=== PATIENT | male | born 1995 | race Caucasian/White ===

== ENCOUNTER 2018-09-19 13:07 | Outpatient (CLI) | payer OTHER, SELFPAY ==
[2018-09-19 13:42] LABS: HCT 44.5 % (40.0-50.0); HGB 14.8 g/dL (13.5-17.5); Mean Corp. HGB Concentration 33.3 g/dL (32.0-36.0); Mean Corpuscular Hemoglobin 27.7 pg (27.0-33.0); Mean Corpuscular Volume 83.2 fL (80-95); Mean Platelet Volume 9.8 fL (8.0-11.0); Platelet Count 291 x1000/uL (130-400); RBC 5.35 m/cumm (4.50-6.00); RBC Distribution Width 12.7 % (11.8-14.1); White Blood Cell Count 9.16 k/cumm (4.4-10.8)
[2018-09-19 14:19] LABS: ALT 39 U/L (12-78); AST 19 U/L (15-37); Albumin 3.7 g/dL (3.4-5.0); Alkaline Phosphatase 89 U/L (46-116); Anion Gap 9.6 mmol/L (3-11); BUN 12 mg/dL (7-18); Bilirubin, Total 0.4 mg/dL (0.2-1.0); CO2 29.4 mmol/L (21.0-32.0); CREATININE 0.98 mg/dL (0.70-1.30); Calcium 8.9 mg/dL (8.5-10.1); Chloride 105 mmol/L (98-107); Glucose 87 mg/dL (70-100); Lipase 673 U/L (73-393); Sodium 144 mmol/L (136-145); Total Protein 7.5 g/dL (6.4-8.2)
== END 2018-09-19 13:27 ==
PROVIDERS: PCP Nurse Practitioner Family; Visit Provider Nurse Practitioner Family
DX: R11.2 Nausea with vomiting, unspecified (principal)
CPT/HCPCS: 36415; 80053; 83690; 85027

== ENCOUNTER 2018-09-20 07:30 | Outpatient (REF) | payer OTHER, SELFPAY ==
[2018-09-22 13:12] LABS: Helicobacter pylori Ag, Feces Negative (NEGAT)
== END 2018-09-20 07:50 ==
LOC: LBN 07:30
PROVIDERS: PCP Nurse Practitioner Family; Visit Provider Nurse Practitioner Family
DX: R11.2 Nausea with vomiting, unspecified (principal)
CPT/HCPCS: 87338

== ENCOUNTER 2018-11-04 06:09 | Day surgery (SDC) | payer OTHER, SELFPAY ==
[2018-11-04 06:20] VITALS: BP 141/78; PULSE 96; RESP 16; TEMP 36.5; O2SAT 99
[2018-11-04] MEDS: Lactated Ringers 1,000 ML 80 ML IV (07:03)
--- NOTE | 2018-11-04 07:50 | STOM_PTH ---
PATIENT: Stan Ferguson LOC: [facility] U#:[id number] AGE/SX: 23/M ROOM: RE11/04/[address]: Winnie Rinaldi : 1995 BED: DIS: 11/04/2018 SPEC #: [id number] RECD: 11/04/18 12:55 STATUS: MAYI PETERSON #: [id number] NATALYA: 11/04/18 07:[address]: Winnie Rinaldi DEPT: Surgical Specimen RECD BY: Vanessa Carbajal ENTERED: 11/04/18 12:57 SP TYPE: STOMACH OTHR DR: Massiel Roger APRN Tissues: 1 - STOMACH BIOPSY 2 - STOMACH BIOPSY 3 - STOMACH BIOPSY 4 - ESOPHAGUS BIOPSY 5 - ESOPHAGUS BIOPSY Procedures: GROSS AND MICRO LEVEL 4 IMMUNOPEROXIDASE STAIN Comments: [id number]
--- NOTE | 2018-11-04 08:03 | PDOC.DSDIS_ITS ---
Discharge Plan Disposition Patient Disposition: HOME Condition: Good Discharge Details Reason For Visit: EGD Attending Provider: Winnie Rinaldi Primary Care Provider: Massiel Roger Home Meds and New Rx's Prescriptions: New pantoprazole 40 mg tablet,delayed release (DR/EC) 40 mg PO DAILY Qty: 30 RF: 11 Continued sildenafil [Viagra] 100 mg tablet 100 mg PO PRN Qty: 8 RF: 12 acetaminophen [Tylenol] 325 MG tablet 650 mg PO DIRECTED PRNRF: 0 Discontinued omeprazole 20 mg capsule,delayed release(DR/EC) 20 mg PO DAILY Qty: 90 RF: 0 ibuprofen [Advil Liqui-Gel] 200 MG capsule 800 mg PO DIRECTED PRNRF: 0 Discharge Instructions Additional Instructions: -avoid caffeine and carbonated beverages avoid mint/chocolate/citrus/tomatoes/onions/garlic -do not lie down for 30 mins after eating -do not eat 2 hrs before bedtime Referrals: Winnie Rinaldi, [OSTEOPATHIC DOCTOR] - (fu in 1 wks time ) Activity:: Activity as Tolerated Shower/Bathe:: 24 hours Diet:: Other Discharge Orders Discharge Orders: Discharge Order (Routine); Ordered 11/04/18 Ordered By: Winnie Rinaldi Other Ambulatory Orders: US abdomen limited (Routine) Timeframe: 1 Week Facility: [facility] - Location: DIAGNOSTIC IMAGING Ordered By: Winnie Rinaldi DS: Diagnosis Discharge Diagnosis (1) Nausea and vomiting: Status: Acute
[2018-11-04 08:22] VITALS: BP 125/75; PULSE 82; RESP 16; TEMP 37.1; O2SAT 96
--- NOTE | 2018-11-04 08:23 | W.PM.ENDDOP ---
Date of service: 11/04/18 Time of Service: 08:23 Endoscopy Report DATE OF PROCEDURE: 11/04/18 PRE-OP DIAGNOSIS: nausea and vomiting POST-OP DIAGNOSIS: same PROCEDURE: egd and bx SURGEON: Winnie Rinaldi ANESTHESIA: MAC ESTIMATED BLOOD LOSS: 2 PATHOLOGY: other COMPLICATIONS: None DISPOSITION: PACU INDICATIONS: nausea and vomiting PREP: Other (none ) FINDINGS: normal Op report is dictated
--- NOTE | 2018-11-07 11:01 | ROE_ITS ---
DATE OF PROCEDURE: November 04, 2018 PREOPERATIVE DIAGNOSIS: Protracted nausea and vomiting. POSTOPERATIVE DIAGNOSIS: Same. PROCEDURE: Esophagogastroduodenoscopy with biopsies. SURGEON: Winnie Rinaldi D.O. ANESTHESIA: MAC ESTIMABED BLOOD LOSS: Less than 2 cc's SPECIMENS: Biopsies are taken. CONDITION: Patient tolerated the procedure well without complications and transferred to the recovery room in stable condition. INDICATION FOR PROCEDURE: Mr. Ferguson is a 23-year-old male seen at the request of his PCP, Dr. Massiel Roger, regarding nausea and vomiting. He has failed outpatient conservative medical management and is here today for an EGD. Informed consent was obtained. Explained risks and benefits of the procedure, including but not limited to infection, perforation, aspiration, and complications from the anesthesia. PROCEDURE DESCRIPTION: The patient was brought to the operative suite and placed in the supine position. Anesthesia is administered per the Department of Anesthesia. A time-out is performed. The previously-lubricated Olympus scope was easily inserted into the oropharynx and passed down into the esophagus. There were no esophageal erosions, varices, diverticula or stricture apparent. The scope is passed into the fundus and the body and the fundus appears grossly normal and there are no signs of ulcers, gastritis, masses, etc. The scope is passed to the antrum. The pylorus and duodenum bulb are visualized. The scope is passed into the second portion of the duodenum, past the papillae and free flow of bile is noted. There are no signs of any abnormality in the duodenum. Biopsy is taken of the duodenal bulb, the antrum, the greater curvature, the GE junction and the distal esophagus. All specimens are retrieved. There is no bleeding noted. Again, grossly this appears to be a normal exam. The patient tolerated the procedure well without complication, and transferred to the recovery room in stable condition. He was given postoperative instructions. He will have an ultrasound next week to follow-up for completion. He will follow-up in one weeks' time in the office for results of biopsies. He is given a prescription for Protonix b.i.d. and instructions reflux lifestyle modifications. He was sent home with a shuttle truck driver and responsible adult for the next eight hours of care post anesthesia. Thank you for allowing me to participate in the care of this patient. cc: Massiel Roger N.P.
== END 2018-11-04 08:49 | disposition home or self-care (01) ==
PROVIDERS: PCP Nurse Practitioner Family; Visit Provider Surgery
PROC: 0DJ68ZZ Inspection of Stomach, Via Natural or Artificial Opening Endoscopic (ICD-10-PCS; CPT 43235; principal; 2018-11-04 07:30)
DX: R11.2 Nausea with vomiting, unspecified (principal); K31.89 Other diseases of stomach and duodenum; K29.50 Unspecified chronic gastritis without bleeding; K21.0 Gastro-esophageal reflux disease with esophagitis
CPT/HCPCS: 43239; 88305; 88361

== ENCOUNTER 2018-11-08 06:54 | Outpatient (CLI) | payer OTHER, SELFPAY ==
--- NOTE | 2018-11-08 07:04 | DI.US_ITS ---
SYMPTOM/DIAGNOSIS: ABD PAIN, NAUSEA, VOMITING, FAMILY H/O GB DISEASE ABDOMEN ULTRASOUND: Routine examination. There are no priors for comparison. The abdominal aorta and IVC are unremarkable. The liver is enlarged measuring 19 cm. in length. There is diffuse increased echogenicity of the liver. No hepatic mass is seen. The gallbladder, common duct, spleen and kidneys are unremarkable. The pancreatic head was visualized and is unremarkable. The remainder of the pancreas cannot be seen due to overlying bowel. IMPRESSION: Increased echogenicity of the liver suggestive of hepatic steatosis.
== END 2018-11-08 07:14 ==
PROVIDERS: PCP Nurse Practitioner Family; Visit Provider Surgery
DX: R10.9 Unspecified abdominal pain (principal); R11.2 Nausea with vomiting, unspecified; R16.0 Hepatomegaly, not elsewhere classified; Z83.79 Family history of other diseases of the digestive system
CPT/HCPCS: 76700

== ENCOUNTER 2018-12-08 00:28 | Outpatient (CLI) | payer OTHER, SELFPAY ==
[2018-12-08] MEDS: Breeza Beverage 473 ML BTL PO ×2 (08:15→08:16)
[2018-12-08] MEDS: Omnipaque 350 MG/ML 50 ML BTL PO (08:15)
--- NOTE | 2018-12-08 09:08 | DI.CT_ITS ---
SYMPTOM/DIAGNOSIS: UNCONTROLLED VOMITING, NAUSEA, R11.2 CHEST, ABDOMEN AND PELVIC CT: The study was carried out with an intravenous injection of 100 cc's of Omnipaque 350 and oral ingestion of dilute contrast material. CHEST: A small calcified nodule is noted in the right upper lobe. The lungs are otherwise unremarkable. There is no infiltrate. There is no pleural effusion. There is a normal sized heart. There is no pericardial effusion. No hilar or mediastinal adenopathy is demonstrated. The aorta appears intact. No bony abnormality is seen. SUMMARY: Aside from a very small calcification in the right upper lobe, the study is unremarkable. ABDOMEN AND PELVIS: The liver is normal. The gallbladder is normal. There is no gallstones or biliary dilatation. The pancreas and spleen and kidneys and adrenals are unremarkable. There is no evidence of bowel obstruction and no focal bowel abnormality is seen. There is nothing to suggest an acute appendix. The bladder is intact. The reproductive organs as visualized are intact. There is no evidence of free air or free fluid in the intraperitoneal space. The aorta is normal. The bony structures are unremarkable. IMPRESSION: No acute abnormality is demonstrated. The examination is within normal limits.
[2018-12-08] MEDS: Omnipaque 350 MG/ML 100 ML BTL IJ (09:16)
== END 2018-12-08 00:48 ==
PROVIDERS: PCP Nurse Practitioner Family; Visit Provider Surgery
DX: R11.2 Nausea with vomiting, unspecified (principal); J98.4 Other disorders of lung
CPT/HCPCS: 74177; 71260; J3490; Q9967

== ENCOUNTER 2019-03-06 11:30 | Outpatient (CLI) | payer OTHER, SELFPAY ==
[2019-03-06 12:27] LABS: Abs Immature Grans 0.01 k/cumm (0.0-0.09); Absolute Basophil Count 0.04 k/cumm (0.0-0.2); Absolute Lymphocyte Count 2.18 k/cumm (1.2-3.4); Absolute Monocyte Count 0.42 k/cumm (0.11-0.7); Absolute Neutrophil Count 5.59 k/cumm (1.2-6.7); Basophils % 0.5; Eosinophils % 1.2; HCT 43.2 % (40.0-50.0); HGB 14.8 g/dL (13.5-17.5); Immature Grans % 0.1; Lymphocytes % 26.1; Mean Corp. HGB Concentration 34.3 g/dL (32.0-36.0); Mean Corpuscular Volume 81.7 fL (80-95); Neutrophils % 67.1; Platelet Count 308 x1000/uL (130-400); RBC 5.29 m/cumm (4.50-6.00); RBC Distribution Width 12.7 % (11.8-14.1); White Blood Cell Count 8.34 k/cumm (4.4-10.8)
[2019-03-06 12:44] LABS: Bilirubin Negative (Negative); Blood Negative (Negative); Clarity Clear (Clear); Glucose Negative (Negative); Ketones Negative (Negative); Leukocyte Esterase Negative (Negative); Nitrite Negative (Negative); Urobilinogen 0.2 EU/dL (Up TO 0.2); pH 7.5 (5-8)
[2019-03-06 13:07] LABS: ALT 31 U/L (12-78); AST 20 U/L (15-37); Albumin 3.7 g/dL (3.4-5.0); Alkaline Phosphatase 90 U/L (46-116); Anion Gap 11.1 mmol/L (3-11); BUN 10 mg/dL (7-18); Bilirubin, Total 0.6 mg/dL (0.2-1.0); C-Reactive Protein 0.77 mg/dL (0.0-0.3); CO2 26.9 mmol/L (21.0-32.0); CREATININE 0.79 mg/dL (0.70-1.30); Calcium 9.1 mg/dL (8.5-10.1); Chloride 105 mmol/L (98-107); Glucose 100 mg/dL (70-100); Potassium 4.2 mmol/L (3.5-5.1); Sodium 143 mmol/L (136-145); Total Protein 7.4 g/dL (6.4-8.2)
[2019-03-06 15:09] LABS: ESR 17 MM/HR (0-15)
[2019-03-07 10:00] LABS: HIV-1/2 Ag & Ab Screen Negative (NEGAT)
[2019-03-07 10:46] LABS: Hepatitis A Antibody IgM Negative (NEGAT); Hepatitis B Core Antibody Negative (NEGAT); Hepatitis B surface Ag Negative (NEGAT); Hepatitis C Ab w Rflx HCV PCR Negative (NEGAT)
[2019-03-07 13:28] LABS: Lyme Ab w Rflx to Lyme Confirm Negative
[2019-03-08 00:09] LABS: Anaplasma phagocytophilum Negative (Negative); B. miyamotoi PCR Negative (Negative); Babesia divergens/MO-1 Negative (Negative); Babesia duncani Negative (Negative); Babesia microti Negative (Negative); Ehrlichia chaffeensis Negative (Negative); Ehrlichia ewingii/canis Negative (Negative); Ehrlichia muris eauclairensis Negative (Negative)
== END 2019-03-06 11:50 ==
PROVIDERS: PCP Nurse Practitioner Family; Visit Provider Nurse Practitioner
DX: R00.0 Tachycardia, unspecified (principal); R20.2 Paresthesia of skin; R23.2 Flushing; R42 Dizziness and giddiness
CPT/HCPCS: 36415; 80053; 85652; 86704; 86709; 86803; 87340; 87389; 87798; 81003; 85025; 86140; 86618

== ENCOUNTER 2019-03-06 14:19 | Emergency (ER) | payer OTHER, SELFPAY ==
[2019-03-06] VITALS (52 sets, daily range): BP systolic 119–142; BP diastolic 51–84; PULSE 65–101; RESP 14–23; TEMP 37.3; O2SAT 92–99
--- NOTE | 2019-03-06 14:44 | W.ED.GENAD ---
Discharge Plan Disposition Patient Disposition: HOME Condition: Improving Discharge Details Chief Complaint: Chest Pain Clinical Impression: Atypical chest pain, Dizziness Primary Care Provider: Massiel Roger ED Provider: Calista Santiago Home Meds and New Rx's Prescriptions: Continued rabeprazole 20 mg tablet,delayed release (DR/EC) 20 mg PO DAILY Qty: 30 RF: 11 sildenafil [Viagra] 100 mg tablet 100 mg PO PRN Qty: 8 RF: 12 acetaminophen [Tylenol] 325 MG tablet 650 mg PO DIRECTED PRNRF: 0 Discharge Instructions Instructions: Chest Pain (ED), Dizziness (ED) Additional Instructions: Drink plenty of fluids and get plenty of rest. Take Motrin every 6 hours as needed and directed for pain. Call your primary care doctor tomorrow to schedule a follow-up appointment for reevaluation. Return immediately to the emergency department if you develop any worsening or concerning symptoms. Discharge Data Discharge Date/Time-TO BE ENTERED AT DEPARTURE: 03/06/19 20:12 Discharge Physician: Calista Santiago Medical Decision Making <Nury Garg MD - Last Filed: 03/07/19 21:14> Stan Ferguson is a 23 y/o man with history of hyperlipidemia presenting to the emergency department with feeling that his face is hot and also nonexertional chest pain. On exam patient is very well and nontoxic appearing, appears comfortable. Benign cardiopulmonary exam, benign neurologic exam. Exam/history is not consistent with acute aortic pathology, sepsis, meningitis, carotid artery pathology, CVA/TIA. Concern for ACS versus PE versus other, also possible metabolic/lyte derangement, dehydration. Patient reports his pain as 5 out of 10. Plan for EKG, chest x-ray, screening labs, sublingual nitroglycerin, IV fluid hydration, telemetry. Will monitor and reassess. Patient reports that he has not taken sildenafil recently. Pt reports that pain improved significantly after initial SLNG. Given second dose, which he reported did not change his pain level further, rates pain as 1-2/10. Plan for pepcid, GI cocktail. Initial labs negative. EKG with subtle AZ depression. Possible pericarditis? Plan for 2nd liter IVF, repeat trop and EKG. Pt reporting pain completely resolved. Feels much better at this time. No complaints. Pt signed out to Dr. Santiago at time of shift change with repeat EKG, repeat trop, trial ambulation for initial complaint of lightheadedness and reassessment pending. Pt is low risk by HEART. Anticipate d/c to home with NSAIDs for possible pericarditis, close outpt f/u. Medical Records Medical records reviewed: Yes I reviewed the patient's medical records. Lab Data Lab results reviewed: Yes I reviewed the patient's lab results. ECG Data Attestation: I personally reviewed and interpreted this ECG (s) as follows: Interpretation: EKG shows sinus rhythm 84, normal axis, slight AZ depression, no acute ischemic changes, nondiagnostic EKG <Calista Santiago, DO - Last Filed: 03/08/19 21:35> Please see Dr. Nury Garg's note for initial presentation, exam and plan. 23-year-old male with a history of hyperlipidemia who presented to the ED for complaint of hot facial flushing and chest pain today. He admitted to heavy drinking 2 days ago. He saw his PCP today for the same complaint and had EKG and blood work which was unremarkable. EKG on arrival today noted slight AZ depression in 1, V4 to V6 but no acute ST elevation. Screening labs including d-dimer and troponin and chest x-ray unremarkable. Plan upon endorsement was to follow-up on repeat troponin and EKG. It was thought that patient could possibly have pericarditis, but EKG was not overwhelmingly convincing for this. He has no fever although he did admit to cold-like symptoms 1 week ago which is since improved. No acute findings on my exam. He denies any abdominal pain and abdomen nontender. Due to complaint of dizziness, normal ear exam bilaterally and he denies any ear pain. No DVT/PE risk factors. No complaint of tearing chest pain and not consistent with dissection. No close family history of sudden cardiac . Patient was not aware of his history of hyperlipidemia. Second EKG unchanged compared to first. Third EKG again notes slight AZ depression in 1, V4 through V6 with this is very slight and no acute ST elevation. Repeat troponin negative. Patient feels much better and is requesting to go home. He denies any chest pain at this time. Discussed with patient that his symptoms could be due to dehydration or possibly pericarditis. Recommended treatment for this will be rest, fluids, NSAIDs. He is instructed to call his primary care doctor tomorrow to schedule follow-up appointment for reevaluation and to return here at any time if worse. Medical Records Medical records reviewed: Yes I reviewed the patient's medical records. Imaging Data Radiologic Study: Radiologist's impression: PA AND LATERAL CHEST: The heart size is normal. The lungs are clear. No infiltrate, effusion or pneumothorax is seen. No rib or spine fracture is visible. IMPRESSION: Negative chest x-ray. Lab Data Lab results reviewed: Yes I reviewed the patient's lab results. Laboratory Tests Range/Units 03/06/19 03/06/19 03/06/19 14:55 14:55 14:55 WBC (4.4-10.8) k/cumm 8.73 RBC (4.50-6.00) m/cumm 5.32 Hgb (13.5-17.5) g/dL 14.6 Hct (40.0-50.0) % 43.2 MCV (80-95) fL 81.2 MCH (27.0-33.0) pg 27.4 MCHC (32.0-36.0) g/dL 33.8 RDW (11.8-14.1) % 12.9 Plt Count (130-400) x1000/uL 314 MPV (8.0-11.0) fL 9.7 Immature Gran % 0.1 Neutrophils % 70.8 Lymphocytes % 22.1 Monocytes % 5.7 Eosinophils % 1.0 Basophils % 0.3 Absolute Neutrophils (1.2-6.7) k/cumm 6.17 Absolute Lymphocytes (1.2-3.4) k/cumm 1.93 Absolute Monocytes (0.11-0.7) k/cumm 0.50 Absolute Eosinophils (0.0-0.7) k/cumm 0.09 Absolute Basophils (0.0-0.2) k/cumm 0.03 D-Dimer (<500) ng/mlFEU 285 Sodium (136-145) mmol/L 143 Potassium (3.5-5.1) mmol/L 3.8 Chloride (98-107) mmol/L 105 Carbon Dioxide (21.0-32.0) mmol/L 26.7 Anion Gap (3-11) mmol/L 11.3 H BUN (7-18) mg/dL 11 Creatinine (0.70-1.30) mg/dL 0.79 Estimated GFR/1.73 m2 (mL/min/1.73m2) >= 60.00 Glucose (70-100) mg/dL 103 H Calcium (8.5-10.1) mg/dL 9.2 Magnesium (1.8-2.4) mg/dL 2.0 Total Bilirubin (0.2-1.0) mg/dL 0.5 AST (15-37) U/L 21 ALT (12-78) U/L 29 Alkaline Phosphatase (46-116) U/L 85 Troponin I (0.00-0.06) ng/mL < 0.05 NT-Pro-B Natriuret Pep ( - 299) pg/mL 40 Total Protein (6.4-8.2) g/dL 7.7 Albumin (3.4-5.0) g/dL 3.6 Range/Units 03/06/19 18:32 WBC (4.4-10.8) k/cumm RBC (4.50-6.00) m/cumm Hgb (13.5-17.5) g/dL Hct (40.0-50.0) % MCV (80-95) fL MCH (27.0-33.0) pg MCHC (32.0-36.0) g/dL RDW (11.8-14.1) % Plt Count (130-400) x1000/uL MPV (8.0-11.0) fL Immature Gran % Neutrophils % Lymphocytes % Monocytes % Eosinophils % Basophils % Absolute Neutrophils (1.2-6.7) k/cumm Absolute Lymphocytes (1.2-3.4) k/cumm Absolute Monocytes (0.11-0.7) k/cumm Absolute Eosinophils (0.0-0.7) k/cumm Absolute Basophils (0.0-0.2) k/cumm D-Dimer (<500) ng/mlFEU Sodium (136-145) mmol/L Potassium (3.5-5.1) mmol/L Chloride (98-107) mmol/L Carbon Dioxide (21.0-32.0) mmol/L Anion Gap (3-11) mmol/L BUN (7-18) mg/dL Creatinine (0.70-1.30) mg/dL Estimated GFR/1.73 m2 (mL/min/1.73m2) Glucose (70-100) mg/dL Calcium (8.5-10.1) mg/dL Magnesium (1.8-2.4) mg/dL Total Bilirubin (0.2-1.0) mg/dL AST (15-37) U/L ALT (12-78) U/L Alkaline Phosphatase (46-116) U/L Troponin I (0.00-0.06) ng/mL < 0.05 NT-Pro-B Natriuret Pep ( - 299) pg/mL Total Protein (6.4-8.2) g/dL Albumin (3.4-5.0) g/dL ECG Data Attestation: I personally reviewed and interpreted this ECG (s) as follows: Interpretation: #1 --Rate of 74, sinus, slight AZ depression noted in 1, 2, V4 through V6. T wave inversion in 3. No acute ST elevation. QTc 410. QRS 94. #2 --Rate of 84, sinus, slight AZ depression in 2, V4. T wave inversion in lead III. No acute ST elevation. QTc 14. QRS 94. #3 --Rate of 80, sinus, slight AZ depression in 1, 2, V4 through V6. T wave inversion in lead III. No acute ST elevation. QTc 420. QRS 96. HPI <Nury Garg MD - Last Filed: 03/07/19 21:14> General Mode of arrival: ambulatory. Date/Time Provider Initiated Documentation: 03/06/19 14:44. Limitations to Documentation: no limitations. Information obtained by: patient, family, RN notes reviewed and old records reviewed. HPI Narrative: Stan Ferguson is a 23 y/o man with history of hyperlipidemia presenting to the emergency room with chest pain. Patient reports that he woke up last night with a sensation that his face and left arm were hot and flushed. Patient reports that he woke up this morning, and just felt facial flushing, but went to his PCP. He had labs drawn there. After his doctor's appointment he went home, and upon lying down he noticed pressure in his left chest, nonradiating. Patient reports that pain seems somewhat improved with activity and worse while lying down. He reports that his face continues to feel hot and reports mild shortness of breath, nausea, lightheadedness, and generalized weakness. He denies any other pain, focal weakness, numbness/tingling, rash, vomiting. No recent illness, no recent travel. Patient reports that he drank a large quantity of alcohol 2 days ago, and spent yesterday mostly outside in the sun. Does not drink regularly. Has been eating and drinking as usual. Related Data Home Medications Medication Instructions Recorded Confirmed acetaminophen [Tylenol] 650 mg PO DIRECTED PRN 11/06/16 03/06/19 sildenafil 100 mg tablet 100 mg PO PRN #8 tab-cap 09/02/18 03/06/19 rabeprazole 20 mg tablet,delayed 20 mg PO DAILY #30 tab 12/01/18 03/06/19 release Previous Rx's Medication Instructions Recorded sildenafil 100 mg tablet 100 mg PO PRN #8 tab-cap 09/02/18 rabeprazole 20 mg tablet,delayed 20 mg PO DAILY #30 tab 12/01/18 release Allergies Allergy/AdvReac Type Severity Reaction Status Date / Time No Known Allergies Allergy Verified 01/10/19 13:40 General Stated Complaint: Chest Pain ASHA: 2 Review of Systems <Nury Garg MD - Last Filed: 03/07/19 21:14> Review of Systems Constitutional: denies fevers Eyes: denies eye pain ENT: denies facial pain, dental pain, sore throat Cardiovascular: denies edema, reports chest pain, lightheadedness Respiratory: denies cough, reports shortness of breath GI: denies abdominal pain, vomiting, diarrhea, reports nausea : denies flank pain MSK: denies back pain, neck pain, arthralgias, myalgias Skin: denies rash Neuro: denies headaches, numbness, focal weakness, vertigo PFSH <Nury Garg MD - Last Filed: 03/07/19 21:14> Medical History Corporo-venous occlusive erectile dysfunction (Chronic 06/18/17) Other and unspecified hyperlipidemia (Chronic 11/01/17) Anxiety and depression Corporo-venous occlusive erectile dysfunction Surgical History History of esophagogastroduodenoscopy (EGD) (Resolved 11/04/18) Social History Smoking/Tobacco Use Status: Never Alcohol Intake: current Alcohol Intake frequency: a few times a month Drug use: Occasionally Substance use type: does not use Household members: other Details: 4 Number of Children: 0 Communication Needs: None Education Level: high school Do you need help understanding health information?: Never current occupation: [employer] What type of physical activity do you participate in: walking Frequency: 1-2 times per week Seatbelt use: always Helmet use: Yes Do you feel safe in your relationship?: Yes Exam <Nury Garg MD - Last Filed: 03/07/19 21:14> Narrative Exam Narrative: Constitutional: well and [id number], pleasant, conversing normally HENT: head atraumatic/normocephalic/normal inspection, mucous membranes moist Eyes: conjunctiva normal, sclera normal, pupils equal at 3 mm, round, reactive to light and accommodation, extraocular movements intact Neck: no stridor, normal ROM, trachea midline Chest: normal inspection, no tenderness palpation Resp: normal work of breathing, LCTAB Cardio: normal rate, normal rhythm, no murmur appreciated GI: abdomen soft, non-tender, non-distended Back: normal inspection, no rash Skin: warm, dry, normal color, no rash Neuro: alert, not altered, cranial nerves II through XII intact, motor 5 out of 5 throughout, normal tone Ext: no edema, no posterior calf tenderness Psych: normal mood, normal affect, normal behavior Course <Nury Garg MD - Last Filed: 03/07/19 21:14> Vital Signs Temperature 37.3 C 03/06/19 14:30 Pulse 98 H 03/06/19 14:30 Respiratory Rate 17 03/06/19 14:30 Blood Pressure 140/84 03/06/19 14:30 Pulse Oximetry 98 03/06/19 14:30 Temperature 37.3 C 03/06/19 14:30 Temperature Source Temporal Artery Scan 03/06/19 14:30 Pulse 98 H 03/06/19 14:30 Respiratory Rate 17 03/06/19 14:30 Blood Pressure 140/84 03/06/19 14:30 Blood Pressure Position Supine 03/06/19 14:30 Pulse Oximetry 98 03/06/19 14:30 Oxygen Delivery Method Room Air 03/06/19 14:30 Oxygen Flow Rate 0 03/06/19 14:30 Sign Out <Nury Garg MD - Last Filed: 03/07/19 21:14> Sign Out Data: Sign Out Comment: Patient signed out to Dr. Santiago at shift change with repeat EKG, repeat troponin, reassessment pending Last updated by Nury Garg MD at 03/06/19 17:05
[2019-03-06] MEDS: Normal Saline 1,000 ML 1000 ML IV (15:01)
[2019-03-06 15:11] LABS: Abs Immature Grans 0.01 k/cumm (0.0-0.09); Absolute Basophil Count 0.03 k/cumm (0.0-0.2); Absolute Eosinophil Count 0.09 k/cumm (0.0-0.7); Absolute Lymphocyte Count 1.93 k/cumm (1.2-3.4); Absolute Neutrophil Count 6.17 k/cumm (1.2-6.7); Basophils % 0.3; HCT 43.2 % (40.0-50.0); HGB 14.6 g/dL (13.5-17.5); Immature Grans % 0.1; Lymphocytes % 22.1; Mean Corp. HGB Concentration 33.8 g/dL (32.0-36.0); Mean Corpuscular Hemoglobin 27.4 pg (27.0-33.0); Mean Corpuscular Volume 81.2 fL (80-95); Mean Platelet Volume 9.7 fL (8.0-11.0); Monocytes % 5.7; Neutrophils % 70.8; Platelet Count 314 x1000/uL (130-400); RBC 5.32 m/cumm (4.50-6.00); RBC Distribution Width 12.9 % (11.8-14.1); White Blood Cell Count 8.73 k/cumm (4.4-10.8)
[2019-03-06 15:21] LABS: ALT 29 U/L (12-78); AST 21 U/L (15-37); Albumin 3.6 g/dL (3.4-5.0); Alkaline Phosphatase 85 U/L (46-116); Anion Gap 11.3 mmol/L (3-11); BUN 11 mg/dL (7-18); Bilirubin, Total 0.5 mg/dL (0.2-1.0); CO2 26.7 mmol/L (21.0-32.0); CREATININE 0.79 mg/dL (0.70-1.30); Calcium 9.2 mg/dL (8.5-10.1); Chloride 105 mmol/L (98-107); Glucose 103 mg/dL (70-100); NT-proBNP 40 pg/mL; Potassium 3.8 mmol/L (3.5-5.1); Sodium 143 mmol/L (136-145); Total Protein 7.7 g/dL (6.4-8.2); Troponin I < 0.05 ng/mL (0.00-0.06)
--- NOTE | 2019-03-06 15:26 | ED.GENADUL_ITS ---
Discharge Plan Disposition Patient Disposition: HOME Condition: Improving Discharge Details Chief Complaint: Chest Pain Clinical Impression: Atypical chest pain, Dizziness Primary Care Provider: Massiel Roger ED Provider: Calista Santiago Home Meds and New Rx's Prescriptions: Continued rabeprazole 20 mg tablet,delayed release (DR/EC) 20 mg PO DAILY Qty: 30 RF: 11 sildenafil [Viagra] 100 mg tablet 100 mg PO PRN Qty: 8 RF: 12 acetaminophen [Tylenol] 325 MG tablet 650 mg PO DIRECTED PRNRF: 0 Discharge Instructions Instructions: Chest Pain (ED), Dizziness (ED) Additional Instructions: Drink plenty of fluids and get plenty of rest. Take Motrin every 6 hours as needed and directed for pain. Call your primary care doctor tomorrow to schedule a follow-up appointment for reevaluation. Return immediately to the emergency department if you develop any worsening or concerning symptoms. Discharge Data Discharge Date/Time-TO BE ENTERED AT DEPARTURE: 03/06/19 20:12 Discharge Physician: Calista Santiago Medical Decision Making <Nury Garg MD - Last Filed: 03/07/19 21:14> Stan Ferguson is a 23 y/o man with history of hyperlipidemia presenting to the emergency department with feeling that his face is hot and also nonexertional chest pain. On exam patient is very well and nontoxic appearing, appears comfortable. Benign cardiopulmonary exam, benign neurologic exam. Exam/history is not consistent with acute aortic pathology, sepsis, meningitis, carotid artery pathology, CVA/TIA. Concern for ACS versus PE versus other, also possible metabolic/lyte derangement, dehydration. Patient reports his pain as 5 out of 10. Plan for EKG, chest x-ray, screening labs, sublingual nitroglycerin, IV fluid hydration, telemetry. Will monitor and reassess. Patient reports that he has not taken sildenafil recently. Pt reports that pain improved significantly after initial SLNG. Given second dose, which he reported did not change his pain level further, rates pain as 1- 2/10. Plan for pepcid, GI cocktail. Initial labs negative. EKG with subtle AL depression. Possible pericarditis? Plan for 2nd liter IVF, repeat trop and EKG. Pt reporting pain completely resolved. Feels much better at this time. No complaints. Pt signed out to Dr. Santiago at time of shift change with repeat EKG, repeat trop, trial ambulation for initial complaint of lightheadedness and reassessment pending. Pt is low risk by HEART. Anticipate d/c to home with NSAIDs for possible pericarditis, close outpt f/u. Medical Records Medical records reviewed: Yes I reviewed the patient's medical records. Lab Data Lab results reviewed: Yes I reviewed the patient's lab results. ECG Data Attestation: I personally reviewed and interpreted this ECG (s) as follows: Interpretation: EKG shows sinus rhythm 84, normal axis, slight AL depression, no acute ischemic changes, nondiagnostic EKG <Calista Santiago, DO - Last Filed: 03/08/19 21:35> Please see Dr. Nury Garg's note for initial presentation, exam and plan. 23-year-old male with a history of hyperlipidemia who presented to the ED for complaint of hot facial flushing and chest pain today. He admitted to heavy drinking 2 days ago. He saw his PCP today for the same complaint and had EKG and blood work which was unremarkable. EKG on arrival today noted slight AL depression in 1, V4 to V6 but no acute ST elevation. Screening labs including d-dimer and troponin and chest x-ray unremarkable. Plan upon endorsement was to follow-up on repeat troponin and EKG. It was thought that patient could possibly have pericarditis, but EKG was not overwhelmingly convincing for this. He has no fever although he did admit to cold-like symptoms 1 week ago which is since improved. No acute findings on my exam. He denies any abdominal pain and abdomen nontender. Due to complaint of dizziness, normal ear exam bilaterally and he denies any ear pain. No DVT/PE risk factors. No complaint of tearing chest pain and not consistent with dissection. No close family history of sudden cardiac . Patient was not aware of his history of hyperlipidemia. Second EKG unchanged compared to first. Third EKG again notes slight AL depression in 1, V4 through V6 with this is very slight and no acute ST elevation. Repeat troponin negative. Patient feels much better and is requesting to go home. He denies any chest pain at this time. Discussed with patient that his symptoms could be due to dehydration or possibly pericarditis. Recommended treatment for this will be rest, fluids, NSAIDs. He is instructed to call his primary care doctor tomorrow to schedule follow-up appointment for reevaluation and to return here at any time if worse. Medical Records Medical records reviewed: Yes I reviewed the patient's medical records. Imaging Data Radiologic Study: Radiologist's impression: PA AND LATERAL CHEST: The heart size is normal. The lungs are clear. No infiltrate, effusion or pneumothorax is seen. No rib or spine fracture is visible. IMPRESSION: Negative chest x-ray. Lab Data Lab results reviewed: Yes I reviewed the patient's lab results. Laboratory Tests Range/Units 03/06/19 03/06/19 03/06/19 14:55 14:55 14:55 WBC (4.4-10.8) k/cumm 8.73 RBC (4.50-6.00) m/cumm 5.32 Hgb (13.5-17.5) g/dL 14.6 Hct (40.0-50.0) % 43.2 MCV (80-95) fL 81.2 MCH (27.0-33.0) pg 27.4 MCHC (32.0-36.0) g/dL 33.8 RDW (11.8-14.1) % 12.9 Plt Count (130-400) x1000/uL 314 MPV (8.0-11.0) fL 9.7 Immature Gran % 0.1 Neutrophils % 70.8 Lymphocytes % 22.1 Monocytes % 5.7 Eosinophils % 1.0 Basophils % 0.3 Absolute Neutrophils (1.2-6.7) k/cumm 6.17 Absolute Lymphocytes (1.2-3.4) k/cumm 1.93 Absolute Monocytes (0.11-0.7) k/cumm 0.50 Absolute Eosinophils (0.0-0.7) k/cumm 0.09 Absolute Basophils (0.0-0.2) k/cumm 0.03 D-Dimer (<500) ng/mlFEU 285 Sodium (136-145) mmol/L 143 Potassium (3.5-5.1) mmol/L 3.8 Chloride (98-107) mmol/L 105 Carbon Dioxide (21.0-32.0) mmol/L 26.7 Anion Gap (3-11) mmol/L 11.3 H BUN (7-18) mg/dL 11 Creatinine (0.70-1.30) mg/dL 0.79 Estimated GFR/1.73 m2 (mL/min/1.73m2) >= 60.00 Glucose (70-100) mg/dL 103 H Calcium (8.5-10.1) mg/dL 9.2 Magnesium (1.8-2.4) mg/dL 2.0 Total Bilirubin (0.2-1.0) mg/dL 0.5 AST (15-37) U/L 21 ALT (12-78) U/L 29 Alkaline Phosphatase (46-116) U/L 85 Troponin I (0.00-0.06) ng/mL < 0.05 NT-Pro-B Natriuret Pep ( - 299) pg/mL 40 Total Protein (6.4-8.2) g/dL 7.7 Albumin (3.4-5.0) g/dL 3.6 Range/Units 03/06/19 18:32 WBC (4.4-10.8) k/cumm RBC (4.50-6.00) m/cumm Hgb (13.5-17.5) g/dL Hct (40.0-50.0) % MCV (80-95) fL MCH (27.0-33.0) pg MCHC (32.0-36.0) g/dL RDW (11.8-14.1) % Plt Count (130-400) x1000/uL MPV (8.0-11.0) fL Immature Gran % Neutrophils % Lymphocytes % Monocytes % Eosinophils % Basophils % Absolute Neutrophils (1.2-6.7) k/cumm Absolute Lymphocytes (1.2-3.4) k/cumm Absolute Monocytes (0.11-0.7) k/cumm Absolute Eosinophils (0.0-0.7) k/cumm Absolute Basophils (0.0-0.2) k/cumm D-Dimer (<500) ng/mlFEU Sodium (136-145) mmol/L Potassium (3.5-5.1) mmol/L Chloride (98-107) mmol/L Carbon Dioxide (21.0-32.0) mmol/L Anion Gap (3-11) mmol/L BUN (7-18) mg/dL Creatinine (0.70-1.30) mg/dL Estimated GFR/1.73 m2 (mL/min/1.73m2) Glucose (70-100) mg/dL Calcium (8.5-10.1) mg/dL Magnesium (1.8-2.4) mg/dL Total Bilirubin (0.2-1.0) mg/dL AST (15-37) U/L ALT (12-78) U/L Alkaline Phosphatase (46-116) U/L Troponin I (0.00-0.06) ng/mL < 0.05 NT-Pro-B Natriuret Pep ( - 299) pg/mL Total Protein (6.4-8.2) g/dL Albumin (3.4-5.0) g/dL ECG Data Attestation: I personally reviewed and interpreted this ECG (s) as follows: Interpretation: #1 --Rate of 74, sinus, slight AL depression noted in 1, 2, V4 through V6. T wave inversion in 3. No acute ST elevation. QTc 410. QRS 94. #2 --Rate of 84, sinus, slight AL depression in 2, V4. T wave inversion in lead III. No acute ST elevation. QTc 14. QRS 94. #3 --Rate of 80, sinus, slight AL depression in 1, 2, V4 through V6. T wave inversion in lead III. No acute ST elevation. QTc 420. QRS 96. HPI <Nury Garg MD - Last Filed: 03/07/19 21:14> General Mode of arrival: ambulatory . Date/Time Provider Initiated Documentation: 03/06/19 14:44 . Limitations to Documentation: no limitations . Information obtained by: patient, family, RN notes reviewed and old records reviewed . HPI Narrative: Stan Ferguson is a 23 y/o man with history of hyperlipidemia presenting to the emergency room with chest pain. Patient reports that he woke up last night with a sensation that his face and left arm were hot and flushed. Patient reports that he woke up this morning, and just felt facial flushing, but went to his PCP. He had labs drawn there. After his doctor's appointment he went home, and upon lying down he noticed pressure in his left chest, nonradiating. Patient reports that pain seems somewhat improved with activity and worse while lying down. He reports that his face continues to feel hot and reports mild shortness of breath, nausea, lightheadedness, and generalized weakness. He denies any other pain, focal weakness, numbness/tingling, rash, vomiting. No recent illness, no recent travel. Patient reports that he drank a large quantity of alcohol 2 days ago, and spent yesterday mostly outside in the sun. Does not drink regularly. Has been eating and drinking as usual. Related Data Home Medications Medication Instructions Recorded Confirmed acetaminophen [Tylenol] 650 mg PO DIRECTED PRN 11/06/16 03/06/19 sildenafil 100 mg tablet 100 mg PO PRN #8 tab-cap 09/02/18 03/06/19 rabeprazole 20 mg tablet,delayed 20 mg PO DAILY #30 tab 12/01/18 03/06/19 release Previous Rx's Medication Instructions Recorded sildenafil 100 mg tablet 100 mg PO PRN #8 tab-cap 09/02/18 rabeprazole 20 mg tablet,delayed 20 mg PO DAILY #30 tab 12/01/18 release Allergies Allergy/AdvReac Type Severity Reaction Status Date / Time No Known Allergies Allergy Verified 01/10/19 13:40 General Stated Complaint: Chest Pain ASHA: 2 Review of Systems <Nury Garg MD - Last Filed: 03/07/19 21:14> Review of Systems Constitutional: denies fevers Eyes: denies eye pain ENT: denies facial pain, dental pain, sore throat Cardiovascular: denies edema, reports chest pain, lightheadedness Respiratory: denies cough, reports shortness of breath GI: denies abdominal pain, vomiting, diarrhea, reports nausea : denies flank pain MSK: denies back pain, neck pain, arthralgias, myalgias Skin: denies rash Neuro: denies headaches, numbness, focal weakness, vertigo PFSH <Nury Garg MD - Last Filed: 03/07/19 21:14> Medical History Corporo-venous occlusive erectile dysfunction (Chronic 06/18/17) Other and unspecified hyperlipidemia (Chronic 11/01/17) Anxiety and depression Corporo-venous occlusive erectile dysfunction Surgical History History of esophagogastroduodenoscopy (EGD) (Resolved 11/04/18) Social History Smoking/Tobacco Use Status: Never Alcohol Intake: current Alcohol Intake frequency: a few times a month Drug use: Occasionally Substance use type: does not use Household members: other Details: 4 Number of Children: 0 Communication Needs: None Education Level: high school Do you need help understanding health information?: Never current occupation: [employer] What type of physical activity do you participate in: walking Frequency: 1-2 times per week Seatbelt use: always Helmet use: Yes Do you feel safe in your relationship?: Yes Exam <Nury Garg MD - Last Filed: 03/07/19 21:14> Narrative Exam Narrative: Constitutional: well and [id number], pleasant, conversing normally HENT: head atraumatic/normocephalic/normal inspection, mucous membranes moist Eyes: conjunctiva normal, sclera normal, pupils equal at 3 mm, round, reactive to light and accommodation, extraocular movements intact Neck: no stridor, normal ROM, trachea midline Chest: normal inspection, no tenderness palpation Resp: normal work of breathing, LCTAB Cardio: normal rate, normal rhythm, no murmur appreciated GI: abdomen soft, non-tender, non-distended Back: normal inspection, no rash Skin: warm, dry, normal color, no rash Neuro: alert, not altered, cranial nerves II through XII intact, motor 5 out of 5 throughout, normal tone Ext: no edema, no posterior calf tenderness Psych: normal mood, normal affect, normal behavior Course <Nury Garg MD - Last Filed: 03/07/19 21:14> Vital Signs Temperature 37.3 C 03/06/19 14:30 Pulse 98 H 03/06/19 14:30 Respiratory Rate 17 03/06/19 14:30 Blood Pressure 140/84 03/06/19 14:30 Pulse Oximetry 98 03/06/19 14:30 Temperature 37.3 C 03/06/19 14:30 Temperature Source Temporal Artery Scan 03/06/19 14:30 Pulse 98 H 03/06/19 14:30 Respiratory Rate 17 03/06/19 14:30 Blood Pressure 140/84 03/06/19 14:30 Blood Pressure Position Supine 03/06/19 14:30 Pulse Oximetry 98 03/06/19 14:30 Oxygen Delivery Method Room Air 03/06/19 14:30 Oxygen Flow Rate 0 03/06/19 14:30 Sign Out <Nury Garg MD - Last Filed: 03/07/19 21:14> Sign Out Data: Sign Out Comment: Patient signed out to Dr. Santiago at shift change with repeat EKG, repeat troponin, reassessment pending Last updated by Nury Garg MD at 03/06/19 17:05
[2019-03-06 15:30] LABS: D-Dimer 285 ng/mlFEU (<500)
--- NOTE | 2019-03-06 15:38 | NUR.NOTE ---
pt back from xray back on telemetry monitor no distress noted none stated Nursing Note:
[2019-03-06] MEDS: Famotidine 20 MG TAB 40 MG PO (16:55)
--- NOTE | 2019-03-06 17:02 | NUR.NOTE ---
pt medicated as per mdo md at bedside reviewing poc Nursing Note:
--- NOTE | 2019-03-06 19:11 | NUR.NOTE ---
1833- rpt ekg performed rpt labs drawn as per mdo pt resting in bed vs on supervisor tumbling and rolling family at bedside Nursing Note:
[2019-03-06 19:12] LABS: Troponin I < 0.05 ng/mL (0.00-0.06)
--- NOTE | 2019-03-06 20:05 | NUR.NOTE ---
IV REMOVED Nursing Note:
--- NOTE | 2019-03-06 20:11 | NUR.NOTE ---
PT DC AMBULATORY STEADY ON DC DC REVIEWED ABLE TO VERBLIZE UNDERSTNADING Nursing Note:
== END 2019-03-06 20:12 | disposition home or self-care (01) ==
PROVIDERS: Student in an Organized Health Care Education/Training Program; Emergency Provider Physician Assistant; PCP Nurse Practitioner Family
DX: R07.89 Other chest pain (principal); R42 Dizziness and giddiness; R23.2 Flushing; F41.9 Anxiety disorder, unspecified
CPT/HCPCS: 36415; 80053; 93005; 96360; 99285; 71046; 83735; 83880; 84484; 85025; 85379; 93010

== ENCOUNTER 2019-08-15 13:27 | Inpatient (IN) | payer OTHER, SELFPAY ==
[2019-08-15] VITALS (63 sets, daily range): BP systolic 113–181; BP diastolic 62–82; PULSE 62–104; RESP 11–27; TEMP 36.3–36.8; O2SAT 94–99
[2019-08-15 13:53] LABS: Abs Immature Grans 0.01 k/cumm (0.0-0.09); Absolute Basophil Count 0.02 k/cumm (0.0-0.2); Absolute Eosinophil Count 0.13 k/cumm (0.0-0.7); Absolute Lymphocyte Count 2.11 k/cumm (1.2-3.4); Absolute Monocyte Count 0.59 k/cumm (0.11-0.7); Basophils % 0.2; Eosinophils % 1.5; HCT 42.2 % (40.0-50.0); HGB 14.4 g/dL (13.5-17.5); Immature Grans % 0.1; Lymphocytes % 23.5; Mean Corp. HGB Concentration 34.1 g/dL (32.0-36.0); Mean Corpuscular Hemoglobin 27.8 pg (27.0-33.0); Mean Corpuscular Volume 81.5 fL (80-95); Mean Platelet Volume 9.5 fL (8.0-11.0); Monocytes % 6.6; Neutrophils % 68.1; Platelet Count 327 x1000/uL (130-400); RBC 5.18 m/cumm (4.50-6.00); RBC Distribution Width 12.8 % (11.8-14.1); White Blood Cell Count 8.96 k/cumm (4.4-10.8)
[2019-08-15 14:02] LABS: PTT Activated 26.5 sec (21.0-31.4)
[2019-08-15 14:05] LABS: ALT 29 U/L (16-63); AST 15 U/L (15-37); Albumin 3.8 g/dL (3.4-5.0); Alkaline Phosphatase 92 U/L (46-116); Anion Gap 10.1 mmol/L (3-11); BUN 16 mg/dL (7-18); Bilirubin, Total 0.3 mg/dL (0.2-1.0); CO2 27.9 mmol/L (21.0-32.0); CREATININE 0.95 mg/dL (0.70-1.30); Calcium 8.5 mg/dL (8.5-10.1); Chloride 104 mmol/L (98-107); Glucose 125 mg/dL (74-106); Potassium 3.4 mmol/L (3.5-5.1); Sodium 142 mmol/L (136-145); Total Protein 7.8 g/dL (6.4-8.2)
[2019-08-15 14:06] LABS: Troponin I < 0.05 ng/Ml (<0.06)
[2019-08-15] MEDS: Omnipaque 350 MG/ML 100 ML BTL IJ (14:40)
--- NOTE | 2019-08-15 14:51 | DI.CT_ITS ---
EXAM: CT CHEST PE CTA CLINICAL HISTORY: pain, sob TECHNIQUE: Imaging Protocol: Axial CT angiography was performed with multi-slice acquisition and mu lti-planar and/or 3D reconstructions. CONTRAST MATERIAL: Intravenous: Omnipaque 350 Contrast volume:100 mL contrast route:IV - Oral:No COMPARISON: CT CHEST/ABD/PEL W from 12/08/2018 FINDINGS: Pulmonary Arteries: No evidence of filling defect to suggest pulmonary emboli. Tracheobronchial tree: Patent where visualized. Mediastinum and Emperatriz: No dominant adenopathy or fluid collection. Pulmonary parenchyma: No consolidation or dominant measurable mass. No architectural distortion. Ther e is a calcified granuloma in the right upper lobe. Pleura: No effusion or pneumothorax. Heart/Aorta: No evidence of aortic aneurysm or dissection. The heart is not dilated. No coronary art tabby calcifications are seen. There is no pericardial effusion or right heart strain. Upper abdomen: Unremarkable. Bones: Unremarkable. IMPRESSION: No evidence of pulmonary embolus, thoracic aortic dissection or aneurysm. DATA REPOSITORY: All CT scans at this facility are submitted to the National Radiology Data Registry (NRDR) Dose Index Registry (DIR) with the [employer] (ACR). RADIATION OPTIMIZATION: All CT scans at this facility use at least one of these dose optimization te chniques: automated exposure control; mA and/or kV adjustment per patient size (includes targeted exa ms where dose is matched to clinical indication); or iterative reconstruction.
--- NOTE | 2019-08-15 14:57 | ED.GENADUL_ITS ---
Discharge Plan Disposition Condition: Stable Discharge Details Chief Complaint: Chest Pain Admit Date/Time: 08/17/19 16:05 Admit Provider: Maurice Purdy Attending Provider: Maryanne Westbrook Primary Care Provider: Massiel Roger ED Provider: Kelly Henriquez Discharge Instructions Activity:: Activity as Tolerated Equipment/Supplies:: No Equipment Needed Diet:: As Tolerated Discharge Orders Discharge Orders: Discharge Order (Routine); Ordered 08/18/19 Ordered By: Maryanne Westbrook Discharge Data Discharge Date/Time-TO BE ENTERED AT DEPARTURE: 08/15/19 19:10 Medical Decision Making <Adelfo Garg MD - Last Filed: 08/28/19 13:09> 14:30 --24-year-old male with history of hyperlipidemia here with intermittent chest pain over the past 1.5 weeks with associated shortness of breath and now presyncope. Patient is hypertensive. Screening ECG was reviewed and interpreted by me: Sinus rhythm 93 bpm, normal axis, S1Q3T3 is present, nondiagnostic. Plan for CT of the chest to assess for pulmonary embolism. Initial labs reviewed and troponin negative. 15:00 --CT of the chest interpreted by radiology: No acute process. No PE. No dissection. Plan for admission for rule out ACS. 15:20 -- Spoke with Dr. Westbrook regarding admission. Plan for delta troponin at 16:30.If positive, will plan for transfer to cardiac center. If neg, plan for hospitalization for serial enzymes, monitoring and ACS rule out. -- Will give aspirin 325 mg. <KENDAL Winston - Last Filed: 08/15/19 21:26> Care was transitioned to myself from Dr. Garg with repeat troponin pending. Please see his note regarding initial presentation and exam. Patient has remained asymptomatic while here. Troponin remains less than 0.05. He has received his aspirin. As discussed previously, will consult again with hospitalist regarding admission for concerning history and plan to continue to be monitored with stress testing tomorrow. Consulted with Dr. Purdy who will come to evaluate the patient. Patient admitted to medical surgical unit for continued evaluation and work-up. HPI <Adelfo Garg MD - Last Filed: 08/28/19 13:09> General Mode of arrival: ambulatory . Date/Time Provider Initiated Documentation: 08/15/19 13:38 . Limitations to Documentation: no limitations . Information obtained by: patient and family . HPI Narrative: 24-year-old male presents with chief complaint of chest pain. Patient notes chest pain over the past 1.5 weeks. Chest pain comes in waves. Pain is typically moderate. Pain localized to retrosternal and has radiated to his left shoulder. He has assoc iated intermittent shortness of breath and lightheadedness. He is felt like he was going to pass out but has not had any syncopal episode. Today chest pain was more pronounced. When he has the episodes he notes a pulsating feeling in his face. Patient had similar presentation in February 2019 and had two neg troponins in the emergency department and was discharged with concern for possible pericarditis. Related Data Home Medications Medication Instructions Recorded Confirmed acetaminophen [Tylenol] 650 mg PO DIRECTED PRN 11/06/16 08/25/19 sildenafil 100 mg tablet 100 mg PO PRN #8 tab-cap 09/02/18 08/25/19 ibuprofen [Advil] 800 mg PO Q6H PRN 08/15/19 08/25/19 cyanocobalamin (vitamin B-12) 500 mcg PO DAILY #30 tab 08/18/19 08/25/19 [Vitamin B-12] pantoprazole [Protonix] 40 mg PO DAILY #30 tab 08/18/19 08/25/19 sucralfate See Rx Instructions .ROUTE 08/18/19 08/25/19 .COMPLEX #84 tab propranolol 10 mg tablet 5 mg PO BID-TID tab 08/25/19 Previous Rx's Medication Instructions Recorded sildenafil 100 mg tablet 100 mg PO PRN #8 tab-cap 09/02/18 cyanocobalamin (vitamin B-12) 500 mcg PO DAILY #30 tab 08/18/19 [Vitamin B-12] pantoprazole [Protonix] 40 mg PO DAILY #30 tab 08/18/19 sucralfate See Rx Instructions .ROUTE 08/18/19 .COMPLEX #84 tab Allergies Allergy/AdvReac Type Severity Reaction Status Date / Time No Known Allergies Allergy Verified 08/25/19 10:52 General Stated Complaint: Chest Pain ASHA: 2 Review of Systems <Adelfo Garg MD - Last Filed: 08/28/19 13:09> All systems reviewed & are unremarkable except as noted in HPI and below Constitutional Constitutional: Denies fever(s) Cardiovascular Cardiovascular: Reports chest pain, Denies edema and Reports dyspnea Respiratory Respiratory: Reports as per HPI and Reports dyspnea Gastrointestinal Gastrointestinal: Denies abdominal pain PFSH <Adelfo Garg MD - Last Filed: 08/28/19 13:09> Medical History Abnormal abdominal ultrasound (Acute ~11/2018) ?hepatic steastosis Counseled 03/10/2019: decrease amount of EtOH consumption and advise weight loss Anxiety and depression Corporo-venous occlusive erectile dysfunction Corporo-venous occlusive erectile dysfunction (Chronic 06/18/17) Other and unspecified hyperlipidemia (Chronic 11/01/17) Surgical History History of esophagogastroduodenoscopy (EGD) (Resolved 11/04/18) EGD with Dr Winnie Rinaldi, [facility], neg and neg bx, repeat as needed. Family History Grandfather Neoplasm Colon [place] dx'ed early 60s Paternal Uncle Heart disease Myocardial infarction Paternal Uncle Heart disease Myocardial infarction Social History Smoking/Tobacco Use Status: Never Alcohol Intake: former Drug use: Never Substance use type: does not use Household members: other Details: 4 Number of Children: 0 Communication Needs: None Education Level: high school Do you need help understanding health information?: Never current occupation: [employer] What type of physical activity do you participate in: walking Frequency: 1-2 times per week Seatbelt use: always Helmet use: Yes Do you feel safe in your relationship?: Yes Exam <Adelfo Garg MD - Last Filed: 08/28/19 13:09> Const General: cooperative and no acute distress HENMT Mouth: moist mucous membranes Eyes Conjunctivae: normal conjunctivae Sclera: normal sclerae Neck Neck: trachea midline and supple Resp Auscultation: clear to auscultation bilaterally, no rales, no rhonchi and no wheezes Cardio Jugular venous pressure: no JVD Rate: regular rate and not tachycardic Rhythm: regular rhythm GI Palpation: soft, not firm, no guarding, no masses, not rigid and nontender Skin General skin exam: no rashes or lesions noted Neuro General: alert, awake, oriented x3 and tone normal Extrem General: no calf tenderness and no edema Psych Appearance: grossly normal Mental Status: mental status grossly normal Course <Adelfo Garg MD - Last Filed: 08/28/19 13:09> Vital Signs Vital signs: Vital Signs Temperature 36.8 C 08/15/19 13:30 Pulse 85 08/15/19 13:30 Respiratory Rate 18 08/15/19 13:30 Blood Pressure 181/80 H 08/15/19 13:30 Pulse Oximetry 99 08/15/19 13:30 Temperature 36.8 C 08/15/19 13:30 Temperature Source Skin 08/15/19 13:30 Pulse 85 08/15/19 14:16 Pulse 94 H 08/15/19 14:16 Respiratory Rate 13 08/15/19 14:16 Respiratory Effort Non-Labored 08/15/19 13:38 Respiratory Depth Normal 08/15/19 13:38 Respiratory Pattern Normal 08/15/19 13:38 Blood Pressure 139/71 08/15/19 14:16 Blood Pressure Mean 84 08/15/19 14:16 Blood Pressure Position Supine 08/15/19 13:30 Pulse Oximetry 96 08/15/19 14:16 Oxygen Delivery Method Room Air 08/15/19 13:30 Oxygen Flow Rate 0 08/15/19 13:30 Lab/Test Results Lab/Test Results: Laboratory Tests Range/Units 08/15/19 08/15/19 08/15/19 13:35 13:35 13:35 WBC (4.4-10.8) k/cumm 8.96 RBC (4.50-6.00) m/cumm 5.18 Hgb (13.5-17.5) g/dL 14.4 Hct (40.0-50.0) % 42.2 MCV (80-95) fL 81.5 MCH (27.0-33.0) pg 27.8 MCHC (32.0-36.0) g/dL 34.1 RDW (11.8-14.1) % 12.8 Plt Count (130-400) x1000/uL 327 MPV (8.0-11.0) fL 9.5 Immature Gran % 0.1 Neutrophils % 68.1 Lymphocytes % 23.5 Monocytes % 6.6 Eosinophils % 1.5 Basophils % 0.2 Absolute Neutrophils (1.2-6.7) k/cumm 6.10 Absolute Lymphocytes (1.2-3.4) k/cumm 2.11 Absolute Monocytes (0.11-0.7) k/cumm 0.59 Absolute Eosinophils (0.0-0.7) k/cumm 0.13 Absolute Basophils (0.0-0.2) k/cumm 0.02 APTT (21.0-31.4) sec 26.5 Sodium (136-145) mmol/L 142 Potassium (3.5-5.1) mmol/L 3.4 L Chloride (98-107) mmol/L 104 Carbon Dioxide (21.0-32.0) mmol/L 27.9 Anion Gap (3-11) mmol/L 10.1 BUN (7-18) mg/dL 16 Creatinine (0.70-1.30) mg/dL 0.95 Estimated GFR/1.73 m2 (mL/min/1.73m2) >= 60.00 Glucose (74-106) mg/dL 125 H Calcium (8.5-10.1) mg/dL 8.5 Total Bilirubin (0.2-1.0) mg/dL 0.3 AST (15-37) U/L 15 ALT (16-63) U/L 29 Alkaline Phosphatase (46-116) U/L 92 Troponin I (<0.06) ng/Ml < 0.05 Total Protein (6.4-8.2) g/dL 7.8 Albumin (3.4-5.0) g/dL 3.8 Sign Out <Adelfo Garg MD - Last Filed: 08/28/19 13:09> Sign Out Data: Sign Out Comment: Care signed out to KENDAL Henriquez with plan to follow-up on delta trop and deterine disposition. Last updated by Adeflo Garg MD at 08/15/19 16:08
[2019-08-15] MEDS: Lactated Ringers 500 ML 1000 ML IV (15:28)
[2019-08-15] MEDS: Aspirin 325 MG TAB PO (16:11)
[2019-08-15 17:09] LABS: Troponin I < 0.05 ng/Ml (<0.06)
--- NOTE | 2019-08-15 18:13 | W.PM.HP.N ---
Date of service: 08/15/19 Time of Service: 18:14 Assessment and Plan Assessment and plan (1) Chest pain: Status: Acute Assessment and plan: CP. I think it is clear that this is musculo-skeletal pain, apparently a strain from dragging the deer through the snow. I do note a history of HLD, and a FH of somewhat early CAD in several uncles (in their 40s), but not his father; and I don't think this is the history one would expect with a familial HLD (and therefore premature CAD). Still it would be best to add on a lipid profile for completeness sake. I think a stress test is not unreasonable given the totality of circumstance but I think this should be considered very low risk CAD. As to the spell at work today it sounds most like a vagal epsidode but will maintain on telemetry overnight. History of Present Illness History of Present Illness Chief Complaint: CP Narrative: 24 male with history of hyperlipidemia (does not know actual numbers). Was seeen here in February for CP, w/u negative, f/u with PCP references GI issues, unclear if these are the same... In any case here with 1-1/2 weeks of CP, came on while he was dragging [place], and pain has been present ontinuously since tthat time. Notes that it is worse with activities that involve , grabbing, etc, but not otherwise exertional. In addition had spell at work today in which he became hot, nauseous and light headed. Reports pulse at time was 82 and regular. Does not know if he became pale. In ER w/u hs been negative, including normal EKG, negative troponin x [address] ER plans admission for third troponin and stress test in AM. Review of Systems All systems reviewed & are unremarkable except as noted in HPI and below [facility] Medical History Abnormal abdominal ultrasound (Acute ~11/2018) ?hepatic steastosis Counseled 03/10/2019: decrease amount of EtOH consumption and advise weight loss Anxiety and depression Corporo-venous occlusive erectile dysfunction Corporo-venous occlusive erectile dysfunction (Chronic 06/18/17) Other and unspecified hyperlipidemia (Chronic 11/01/17) Surgical History History of esophagogastroduodenoscopy (EGD) (Resolved 11/04/18) EGD with Dr Winnie Rinaldi, [facility], neg and neg bx, repeat as needed. Social History Smoking/Tobacco Use Status: Never Alcohol Intake: former Drug use: Never Substance use type: does not use Household members: other Details: 4 Number of Children: 0 Communication Needs: None Education Level: high school Do you need help understanding health information?: Never current occupation: [employer] What type of physical activity do you participate in: walking Frequency: 1-2 times per week Seatbelt use: always Helmet use: Yes Do you feel safe in your relationship?: Yes Meds Home Medications and Allergies Home Medications Medication Instructions Recorded Confirmed Type acetaminophen [Tylenol] 650 mg PO DIRECTED PRN 11/06/16 08/15/19 History sildenafil 100 mg tablet 100 mg PO PRN #8 tab-cap 09/02/18 08/15/19 Rx ibuprofen [Advil] 800 mg PO Q6H PRN 08/15/19 08/15/19 History Allergies Allergy/AdvReac Type Severity Reaction Status Date / Time No Known Allergies Allergy Verified 08/15/19 13:32 Exam Narrative Exam Narrative: 135/76, 86, 26, 94%, 36.8. HEENT AT/NC; neck supple; lungs clear; hheart RRR w/o m/r/g; chest wall mild tenderness along right parasternal area and chest pain with resisted right shoulder internal rotation, reproduces his pain. Abdomen softand NT; extremities w/o edema, pulse 2+/= Results Labs Result diagrams: 08/15/19 13:35 08/15/19 13:35 Labs: Laboratory Results - last 24 hr 08/15/19 08/15/19 08/15/19 13:35 13:35 13:35 WBC 8.96 RBC 5.18 Hgb 14.4 Hct 42.2 MCV 81.5 MCH 27.8 MCHC 34.1 RDW 12.8 Plt Count 327 MPV 9.5 Immature Gran % 0.1 Neutrophils % 68.1 Lymphocytes % 23.5 Monocytes % 6.6 Eosinophils % 1.5 Basophils % 0.2 Absolute Neutrophils 6.10 Absolute Lymphocytes 2.11 Absolute Monocytes 0.59 Absolute Eosinophils 0.13 Absolute Basophils 0.02 APTT 26.5 Sodium 142 Potassium 3.4 L Chloride 104 Carbon Dioxide 27.9 Anion Gap 10.1 BUN 16 Creatinine 0.95 Estimated GFR/1.73 m2 >= 60.00 Glucose 125 H Calcium 8.5 Total Bilirubin 0.3 AST 15 ALT 29 Alkaline Phosphatase 92 Troponin I < 0.05 Total Protein 7.8 Albumin 3.8 08/15/19 16:35 WBC RBC Hgb Hct MCV MCH MCHC RDW Plt Count MPV Immature Gran % Neutrophils % Lymphocytes % Monocytes % Eosinophils % Basophils % Absolute Neutrophils Absolute Lymphocytes Absolute Monocytes Absolute Eosinophils Absolute Basophils APTT Sodium Potassium Chloride Carbon Dioxide Anion Gap BUN Creatinine Estimated GFR/1.73 m2 Glucose Calcium Total Bilirubin AST ALT Alkaline Phosphatase Troponin I < 0.05 Total Protein Albumin Last Vital Signs Temp 36.8 C 08/15/19 13:30 Pulse 86 08/15/19 17:46 Resp 26 H 08/15/19 17:46 BP 135/76 08/15/19 17:46 Pulse Ox 94 L 08/15/19 17:46
[2019-08-15 19:01] LABS: Calculated LDL 51 mg/dL; Cholesterol 139 mg/dL (<200); HDL Cholesterol 33 mg/dL (40-60); Triglyceride 278 mg/dL (<150)
[2019-08-15 20:55] LABS: Troponin I < 0.05 ng/Ml (<0.06)
[2019-08-16] VITALS (11 sets, daily range): BP systolic 113–145; BP diastolic 68–83; PULSE 73–114; RESP 16–19; TEMP 36.2–37.4; O2SAT 95–98
--- NOTE | 2019-08-16 08:24 | PDOC.CMIN ---
- If Service Date Differs Date of service: 08/16/19 Time of Service: 08:24 Care Management Initial Assess REASON FOR HOSPITALIZATION:: Chest Pain PAST MEDICAL HISTORY/PAST SURGICAL HISTORY:: Dyspnea on exertion, hyperlipdemia PREVIOUS FUNCTIONAL STATUS/SOCIAL/FAMILY SUPPORTS:: Stan lives in [facility], he works fulltime for [employer]. He is independent with ADL's and transportation. His parents are his main support. CURRENT FUNCTIONAL STATUS:: Stan is alert and engaged. He denies any needs at this time. He is having a echo today then a stress test on . ADVANCE DIRECTIVES:: None on file Has patient been provided with information about the portal?: Yes Did the patient sign up for the portal?: No CODE STATUS:: Full Code INSURANCE COVERAGE / FINANCIAL ISSUES:: Health plan inc CURRENT HOME/COMMUNITY SERVICES/EQUIPMENT:: None PRIMARY CARE PHYSICIAN:: Massiel Roger NP POTENTIAL DISCHARGE NEEDS:: Follow up with primary care scheduled prior to discharge PATIENT/FAMILY EDUCATION NEEDS:: Discharge education, limitations and follow up plan of care including ask me three and self management. ANTICIPATED BARRIERS TO DISCHARGE:: Awaiting stress test not available until 08/17/19 TRANSPORTATION:: Via private car with family at time of discharge PLAN:: Stan will be discharged home when medically ready per provider. Anticipate no additional services at this time. CM to continue to provide support to the patient for on going discharge planning.
[2019-08-16 08:41] LABS: Anion Gap 7.5 mmol/L (3-11); BUN 14 mg/dL (7-18); CO2 28.5 mmol/L (21.0-32.0); CREATININE 0.82 mg/dL (0.70-1.30); Chloride 107 mmol/L (98-107); Glucose 104 mg/dL (74-106); Magnesium 1.7 mg/dL (1.8-2.4); Potassium 3.8 mmol/L (3.5-5.1); Sodium 143 mmol/L (136-145)
[2019-08-16 10:20] LABS: Troponin I < 0.05 ng/Ml (<0.06)
[2019-08-16] MEDS: Pantoprazole 40 MG VIAL IVP (10:31)
[2019-08-16] MEDS: Aspirin E.C. 81 MG TABEC PO (10:31)
[2019-08-16] MEDS: Normal Saline Flush 10 ML SYR IVP (10:31)
--- NOTE | 2019-08-16 10:43 | W.PM.PROGNOT ---
Date of Service Date of service: 08/16/19 Time of Service: 10:43 Assessment and Plan Assessment and plan (1) Chest pain: Status: Acute Assessment and plan: Relieved with nitroglycerin, pressure like. Will have another set of troponins today at 1 pm. No evidence of ACS so far. Given the history of early cardiac disease, we are obligated to obtain a stress test - none available at [facility] until tomorrow. Given PA segment depressions, I am checking ESR/CRP/echo - ?pericarditis/effusion. There is no evidence of electrical alternans on EKG and VSS are not consistent with tamponade. CTA ruled out PE and aortic pathology. The patient did have a relatively short trial of PPIs and an EGD with general surgery in December this year. At the time, he was referred for pH studies, but chose not to follow up. Given recurrent of chest pain this time after vomiting, I think it is possible that he is having esophagitis/reflux. PPI written, and trialing GI cocktail, add carafate. Anxiety also on differential, but would be a diagnosis of exclusion. (2) GARCIA (dyspnea on exertion): Status: Acute Assessment and plan: Check echo, pro BNP, stress test. CTA negative - would have shown PNA. It is also possible that reflux could be triggering bronchospasm, but I am not hearing any wheezing at this time. Will monitor. (3) Left sided numbness: Status: Acute Assessment and plan: The patient most certainly has exposure to ticks - I think it is worth to repeat the tick panel. Also, consult neurology. Consider demyelinating illness as well. Check b12. (4) Near syncope: Status: Acute Assessment and plan: ?POTS/dysautonomia. HR does go up when he stands up; BPs do not drop significantly. Will hydrate and monitor HR. Consult neurology. (5) DVT prophylaxis: Status: Acute Assessment and plan: not required in a 24 year old ambulatory male (6) Discharge planning issues: Status: Acute Assessment and plan: Full code Possible discharge home tomorrow if cardiac workup negative. Subjective Subjective Interval history since last seen: Had an episode of chest pain this morning, which got better with nitroglycerin. Pains are pressure like and come and go every 15 minutes. I spoke with the patient in presence of his mother, who had a timeline of the events so that nothing was forgotten. He has a strong family history on paternal side of heart attacks at the age of 30. Mr Ferguson reports feeling dizzy, nauseated, having palpitations yesterday, and feeling like he might faint. This happens to him especially after eating, he states. He denies reflux. Chest pain started after. States change of position from sitting to standing makes him dizzy, as does carrying weights. No actual syncope. The chest pain he described to me today is left-sided, radiates to the back, is pressure-like, NOT reproducible with palpation, started 2 days after vomiting - which happened while he was helping his father drag a deer 2 weeks ago. He got dizzy and nauseated then too, then vomited. He denies getting dizzy turning head side to side. Denies the sensation of heartburn. Denies feeling like food just sits there sometimes. Denies chest pain getting better when he sits up/sits forward. Also reports feeling short of breath specifically with exertion since the episode with the deer. Finally, reports ongoing L-sided facial, neck, and arm numbness since March. He has also had occasional RUE weakness - he had it yesterday, but not today. Exam Narrative Exam Narrative: General: well appearing male, pleasant, appears mildly (appropriately) anxious, A&OX3, not in acute distress when talking to me, dry skin HEENT: EOMI, MMM Heart: RRR, no m/r/g, not tachycardic in sitting position. I am not able to reproduce his pain by palpation no matter how hard I pressed. Heart sounds are not distant. No rub. Lungs: CTAB GI: abdomen is soft, nontender, nondistended Objective Objective Clinical Data: Abnormal lab results 08/15/19 08/15/19 08/16/19 Range/Units 13:35 16:35 08:15 Potassium 3.4 L (3.5-5.1) mmol/L Glucose 125 H (74-106) mg/dL Magnesium 1.7 L (1.8-2.4) mg/dL HDL Cholesterol 33 L (40-60) mg/dL Vital Signs Temperature 37.1 C 08/16/19 09:32 Temperature Source Tympanic 08/16/19 09:32 Pulse 89 08/16/19 09:45 Pulse Rhythm Regular 08/16/19 10:19 Pulse 86 08/15/19 18:50 Respiratory Rate 18 08/16/19 09:32 Respiratory Effort Non-Labored 08/16/19 10:19 Respiratory Depth Normal 08/16/19 10:19 Respiratory Pattern Normal 08/16/19 10:19 Blood Pressure 123/68 08/16/19 09:45 Blood Pressure Mean 87 08/15/19 18:46 Blood Pressure Position Supine 08/15/19 13:30 Pulse Oximetry 98 08/16/19 09:32 Oxygen Delivery Method Room Air 08/16/19 07:56 Oxygen Flow Rate 0 08/16/19 07:56 Pain Level 1 08/16/19 09:46 Comment 08/16/19 09:45 Intake & Output 08/15/19 08/15/19 08/16/19 11:59 23:59 11:59 Intake Total 1010 / 1010 360 / 360 Balance 1010 / 1010 360 / 360 Weight 110 kg Intake: IV 1010 / 1010 Oral 360 / 360 Other: Urine Appearance Clear Comment voiding indpendently Stool Size Small Stool Characteristics Soft Formed Voiding Methods Toilet Toilet Laboratory Results WBC 8.96 k/cumm (4.4-10.8) 08/15/19 13:35 RBC 5.18 m/cumm (4.50-6.00) 08/15/19 13:35 Hgb 14.4 g/dL (13.5-17.5) 08/15/19 13:35 Hct 42.2 % (40.0-50.0) 08/15/19 13:35 MCV 81.5 fL (80-95) 08/15/19 13:35 MCH 27.8 pg (27.0-33.0) 08/15/19 13:35 MCHC 34.1 g/dL (32.0-36.0) 08/15/19 13:35 RDW 12.8 % (11.8-14.1) 08/15/19 13:35 Plt Count 327 x1000/uL (130-400) 08/15/19 13:35 MPV 9.5 fL (8.0-11.0) 08/15/19 13:35 Immature Gran % 0.1 08/15/19 13:35 Neutrophils % 68.1 08/15/19 13:35 Lymphocytes % 23.5 08/15/19 13:35 Monocytes % 6.6 08/15/19 13:35 Eosinophils % 1.5 08/15/19 13:35 Basophils % 0.2 08/15/19 13:35 Absolute Neutrophils 6.10 k/cumm (1.2-6.7) 08/15/19 13:35 Absolute Lymphocytes 2.11 k/cumm (1.2-3.4) 08/15/19 13:35 Absolute Monocytes 0.59 k/cumm (0.11-0.7) 08/15/19 13:35 Absolute Eosinophils 0.13 k/cumm (0.0-0.7) 08/15/19 13:35 Absolute Basophils 0.02 k/cumm (0.0-0.2) 08/15/19 13:35 APTT 26.5 sec (21.0-31.4) 08/15/19 13:35 Sodium 143 mmol/L (136-145) 08/16/19 08:15 Potassium 3.8 mmol/L (3.5-5.1) 08/16/19 08:15 Chloride 107 mmol/L (98-107) 08/16/19 08:15 Carbon Dioxide 28.5 mmol/L (21.0-32.0) 08/16/19 08:15 Anion Gap 7.5 mmol/L (3-11) 08/16/19 08:15 BUN 14 mg/dL (7-18) 08/16/19 08:15 Creatinine 0.82 mg/dL (0.70-1.30) 08/16/19 08:15 Estimated GFR/1.73 m2 >= 60.00 (mL/min/1.73m2) 08/16/19 08:15 Glucose 104 mg/dL (74-106) 08/16/19 08:15 Calcium 9.0 mg/dL (8.5-10.1) 08/16/19 08:15 Magnesium 1.7 mg/dL (1.8-2.4) L 08/16/19 08:15 Total Bilirubin 0.3 mg/dL (0.2-1.0) 08/15/19 13:35 AST 15 U/L (15-37) 08/15/19 13:35 ALT 29 U/L (16-63) 08/15/19 13:35 Alkaline Phosphatase 92 U/L (46-116) 08/15/19 13:35 Troponin I < 0.05 ng/Ml (<0.06) 08/16/19 08:15 Total Protein 7.8 g/dL (6.4-8.2) 08/15/19 13:35 Albumin 3.8 g/dL (3.4-5.0) 08/15/19 13:35 Triglycerides 278 mg/dL (<150) 08/15/19 16:35 Total Cholesterol 139 mg/dL (<200) 08/15/19 16:35 LDL Cholesterol, Calc 51 mg/dL 08/15/19 16:35 HDL Cholesterol 33 mg/dL (40-60) L 08/15/19 16:35 Tele: SR 60-70's EKG: NSR, HR 80, slight PA segment depressions diffusely (old)
[2019-08-16] MEDS: MAGNESIUM SULFATE 2 GM/50 ML BAG IVPB (10:59)
[2019-08-16] MEDS: Sucralfate 1 GM TAB PO ×3 (10:59→22:11)
[2019-08-16] MEDS: Normal Saline 1,000 ML 150 ML IV ×2 (10:59→19:15)
[2019-08-16] MEDS: Ketorolac 30 MG/ML VIAL IVP (11:14)
[2019-08-16 14:37] LABS: ESR 12 mm/hr (0-15)
[2019-08-16 14:41] LABS: Troponin I < 0.05 ng/Ml (<0.06)
--- NOTE | 2019-08-16 16:07 | W.NEUROCONSU ---
Date of service: 08/16/19 Time of Service: 16:07 Assessment and Plan Assessment and plan (1) Postural orthostatic tachycardia syndrome: Status: Acute (2) Migraine headache with aura: Status: Acute (3) Left sided numbness: Status: Acute Assessment and plan: Mr. Ferguson is a 24 year-old, right-handed young man with a PMH of hyperlipidemia and migraine headaches with aura with a 1 year history of exertional tachycardia, dyspnea, and lightheadedness with more persistent symptoms in the last 2 weeks along with chest pain. His neurological exam was normal. Bedside orthostatic tilt testing was consistent with Postural Orthostatic Tachycardia Syndrome. It's possible that his symptoms for the last 6 months could be due to dysautonomia associated with POTS which I discussed him and his mother. However, primary cardiac disease needs to be ruled out first. Further differential for his spells include migraine. He has known and frequent migraine headaches with aura. Precordial migraine is a well described migraine phenomenom manifested by chest pain. GI/GERD remains in the differential as well. Pending his stress test, I would consider treatment with propranolol which can be helpful for dysautonomic/POTs symptoms along with palpitations and migraine prevention. I otherwise also discussed lifestyle modifications for orthostatic hypotension including slow transitions, increased salt and hydration, and eating smaller, low-carb meals. See below. Finally, he notes persistent subjective left cheek and neck numbness. MS is of concern. I recommend a brain MRI w/o contrast. Lifestyle Modifications for POTS The following modifications may help: -Arise slowly from lying down. Sit up on the bed for a few minutes before standing up. This is most important in the morning. Also be careful when standing up from a seated position. Take your time! -Tapping your feet on the floor for 30 seconds prior to standing, can also help minimize symptoms. -Avoiding straining, coughing, and walking in hot weather; these activities can worsen your symptoms. -It is important that you stay hydrated and avoid over-heating. We recommend that you drink 1.5 to 3 Liters of water or fluids a day. -Elastic stockings (Mode hose or compression stockings) are sometimes helpful. These can generally be found at your local pharmacy. -Abdominal binder. You can buy these online ([employer], etc). Get the four-panelled one (should extend from ribs to below hip bones). Sometimes the drop in blood pressure can be more likely to happen after a meal. We would recommend minimizing this by: -Avoiding large meals -Ingesting meals low in carbohydrates -Minimizing alcohol intake -Drinking water with meals, as well as in between meals -Salty foods can be helpful -Avoid activities or sudden standing immediately after eating History of Present Illness History of Present Illness Chief Complaint: dizziness and numbness Narrative: Handedness: right. HPI: Mr. Ferguson is a 24 year-old man with a PMH of hyperlipidemia and BMI 33. He was admitted yesterday with a 1.5 week history chest pain along with increased episodic tachycardia/palpitations, dyspnea on exertion, and lightheadedness with an episode of pre-syncope the day prior to admission. In February of this year, he presented to the ER with similar symptoms including chest pain, dizziness, and nausea along with episodic heat/numb/tingling of the left face, neck, and arm all of which improved/resolved with SL nitro except for persistent left face (cheek) and neck numbness to this day. He doesn't notice the numbness when he is busy, so hard to know if it's waxing and waning or not. He has had no recurrence of the arm numbness. He denies any history of prior transient neurological symptoms. Since then, and in the preceding 6 months, he has experienced episodic events triggered by exertion/heavy lifting, etc manifested by tachycardia/palpitations, dyspnea, and lightheadedness that resolve with rest after 30sec-1min. About 2 weeks ago, he had a particularly severe episode after dragging a deer with his father that also resulted in nausea and emesis. Ever since then he has not felt right. His spells while previously only triggered by exertion are not occurring spontaneously and even at rest. There may be some exertion with large meals too. He also has been having lightheadedness, brief <10 sec, that occurs upon standing. These can also trigger his events. Initial reports noted RUE weakness, but he feels both arms get weak with these episodes. He has a history of migraine headaches w/o visual aura occurring 1-3x per week. The respond well to prn Advil. His headache frequency has not changed in the last 2 weeks. He notes no significant or preceding illness. Notes from February indicate he might have had a URI. He has no FHx or personal history of syncope. He has no early satiety. He does not dislocate his joints nor have a FHx of similar. He had a CT chest which was unremarkable. His EKG showed MA depression in February and now. Telemetry has been unremarkable. He had a TTE today. Results are pending. Orthostatic bedside tilt vital testing was significant for tachycardia with a change in heart rate from 80 to 114. His blood pressure was stable. Review of Systems All systems reviewed & are unremarkable except as noted in HPI and below PFSH Medical History Abnormal abdominal ultrasound (Acute ~11/2018) ?hepatic steastosis Counseled 03/10/2019: decrease amount of EtOH consumption and advise weight loss Anxiety and depression Corporo-venous occlusive erectile dysfunction Corporo-venous occlusive erectile dysfunction (Chronic 06/18/17) Other and unspecified hyperlipidemia (Chronic 11/01/17) Surgical History History of esophagogastroduodenoscopy (EGD) (Resolved 11/04/18) EGD with Dr Winnie Rinaldi, [facility], neg and neg bx, repeat as needed. Family History Grandfather Neoplasm Colon CA dx'ed early 60s Paternal Uncle Heart disease Myocardial infarction Paternal Uncle Heart disease Myocardial infarction Social History Smoking/Tobacco Use Status: Never Alcohol Intake: former Drug use: Never Substance use type: does not use Household members: other Details: 4 Number of Children: 0 Communication Needs: None Education Level: high school Do you need help understanding health information?: Never current occupation: [employer] What type of physical activity do you participate in: walking Frequency: 1-2 times per week Seatbelt use: always Helmet use: Yes Do you feel safe in your relationship?: Yes Visit Medication and Allergies Active Medications Generic Name Dose Route Start Last Admin Trade Name Freq PRN Reason Stop Dose Admin Acetaminophen 1,000 mg 08/15/19 18:33 Tylenol PO Q6H PRN PRN Al Hydrox/Mg Hydrox/Simethicone 30 ml 08/16/19 10:02 Mylanta Liquid PO Q4H PRN PRN Aminophylline 0 mg 08/17/19 06:00 IVP DIRECTED CLAIRE Aspirin 81 mg 08/16/19 08:30 08/16/19 10:31 Ecotrin PO 81 mg DAILY CLAIRE Administration Dimethicone/Zinc Oxide 0 gm 08/15/19 18:30 Zain Protect Cream TP PRN PRN Sodium Chloride 1,000 mls @ 150 mls/hr 08/16/19 10:45 08/16/19 10:59 Saline 1000ml Bag IV 150 mls/hr INFUSION CLAIRE Administration IV Miscellaneous Supplies 1 each 08/15/19 13:45 IV DIRECTED CLAIRE Iohexol 100 ml 08/15/19 14:45 08/15/19 14:40 Omnipaque 350 IJ 09/14/19 23:59 100 ml DIRECTED CLAIRE Administration Ketorolac Tromethamine 30 mg 08/16/19 09:33 08/16/19 11:14 Toradol Injection IVP 08/21/19 09:32 30 mg Q6H PRN PRN Administration Morphine Sulfate 1 mg 08/16/19 09:33 IVP Q4H PRN PRN Nitroglycerin 0.4 mg 08/16/19 09:32 08/16/19 09:38 Nitrostat SL 0.4 mg Q5 MIN PRN X3 PRN Administration Pantoprazole Sodium 40 mg 08/16/19 10:00 08/16/19 10:31 Protonix Injection IVP 40 mg Q24H CLAIRE Administration Regadenoson 0.4 mg 08/17/19 06:00 Lexiscan IVP TODAY CLAIRE Sodium Chloride 0 ml 08/15/19 13:38 08/16/19 10:31 Saline Flush 10 Ml Syringe IVP 40 ml PRN PRN Administration Sucralfate 1 gm 08/16/19 11:30 08/16/19 15:56 Carafate PO 1 gm AC & HS CLAIRE Administration Zolpidem Tartrate 5 mg 08/15/19 18:33 Ambien PO HS PRN MAY REPEAT X1 PRN Allergies No Known Allergies Allergy (Verified 08/15/19 13:32) Exam Narrative Exam Narrative: Physical Exam: Gen: Patient of apparent stated age, NAD Head and face: no facial or cranial abnormalities Neck: Supple, no meningismus, no occipital tenderness CV: + S1, S2, RRR, no murmur Resp: CTA B/L Abd: soft, nontender, nondistended Ext: No edema. No clubbing or cyanosis. No bony deformity. Neuro Exam: Language: fluency, naming, repetition, and comprehension intact; Mental Status: AAOx3, current events intact, fund of knowledge intact; Speech: no dysarthria Cranial nerves: Funduscopy: not performed CN II: visual stoner intact CN III, IV, : extraocular movements intact, no nystagmus, pupils symmetric and reactive to light CN V: face sensation intact to LT and PP CN VII: no facial asymmetry noted CN VIII: hearing intact bilaterally CN IX, X: palate rises symmetrically CN XI: trapezius/SCM 5/5 bilaterally CN XII: protrudes tongue symmetrically Sensory: intact to LT, PP, vibration, and joint position in all extremities Motor: bulk and tone intact. Fine motor movements intact bilaterally. No pronator drift. Strength 5/5 throughout including the deltoids, biceps, triceps, wrist extensors, hip flexors, knee flexors, knee extensors, ankle flexors, and ankle extensors. Reflexes: hyporeflexic at the biceps, triceps, brachioradialis, patella, and achilles tendons bilaterally; toes down going bilaterally; Coordination: FTN and HTS intact bilaterally Gait: not performed Results Last Vital Signs Temp 36.2 C L 08/16/19 15:44 Pulse 74 08/16/19 15:44 Resp 18 08/16/19 15:44 BP 123/75 08/16/19 15:44 Pulse Ox 97 08/16/19 15:44 Labs Result diagrams: 08/15/19 13:35 08/16/19 08:15 Labs: Laboratory Results - last 24 hr 08/15/19 08/15/19 08/15/19 16:35 16:35 20:30 ESR Sodium Potassium Chloride Carbon Dioxide Anion Gap BUN Creatinine Estimated GFR/1.73 m2 Glucose Calcium Magnesium Troponin I < 0.05 < 0.05 Triglycerides 278 Total Cholesterol 139 LDL Cholesterol, Calc 51 HDL Cholesterol 33 L 1208/16/19 08/16/19 08:15 08:15 13:50 ESR Sodium 143 Potassium 3.8 Chloride 107 Carbon Dioxide 28.5 Anion Gap 7.5 BUN 14 Creatinine 0.82 Estimated GFR/1.73 m2 >= 60.00 Glucose 104 Calcium 9.0 Magnesium 1.7 L Troponin I < 0.05 < 0.05 Triglycerides Total Cholesterol LDL Cholesterol, Calc HDL Cholesterol 08/16/19 13:50 ESR 12 Sodium Potassium Chloride Carbon Dioxide Anion Gap BUN Creatinine Estimated GFR/1.73 m2 Glucose Calcium Magnesium Troponin I Triglycerides Total Cholesterol LDL Cholesterol, Calc HDL Cholesterol
[2019-08-16 16:16] LABS: C-Reactive Protein 0.37 mg/dL (0.0-0.3); Vitamin B12 529 pg/mL (193-986)
[2019-08-16 16:22] LABS: NT-proBNP 10 pg/mL (<300)
[2019-08-17] VITALS (13 sets, daily range): BP systolic 112–148; BP diastolic 68–84; PULSE 62–107; RESP 17–18; TEMP 36.5–37.2; O2SAT 95–98
[2019-08-17] MEDS: Normal Saline 1,000 ML 150 ML IV ×2 (01:29→07:54)
[2019-08-17 07:02] LABS: Calculated LDL 69 mg/dL; Cholesterol 114 mg/dL (<200); HDL Cholesterol 31 mg/dL (40-60); Triglyceride 74 mg/dL (<150)
[2019-08-17] MEDS: Aspirin E.C. 81 MG TABEC PO (07:53)
[2019-08-17] MEDS: Sucralfate 1 GM TAB PO ×3 (07:54→21:23)
[2019-08-17] MEDS: Pantoprazole 40 MG VIAL IVP (10:05)
[2019-08-17 12:00] LABS: Lyme Ab w Rflx to Lyme Confirm Negative (Negative)
--- NOTE | 2019-08-17 12:05 | DI.MRI_ITS ---
EXAM: MR BRAIN WO CLINICAL HISTORY: numbness LUE/face TECHNIQUE: Multiplanar multisequence MRI of the brain was performed. COMPARISON: No exams were available for comparison FINDINGS: No intracranial hemorrhage, mass or infarct is seen. The ventricles are normal in size. There are no abnormal high signal lesions in the white matter. The vascular flow voids appear intact. The orbits and pituitary are unremarkable. The sinuses and mastoid air cells are clear. IMPRESSION: Normal brain MRI
--- NOTE | 2019-08-17 13:01 | DI.NM_ITS ---
APPROVED REPORT Exam: Exercise Treadmill Patient Location: In-Patient Room/Bed: 217 Stress Nurse: Nieves Moser RN BMI: 33.90 Baseline Rhythm: Sinus rhythm. Indications: Chest pain. Family history of heart disease. Medical History Cardiac Medications: No scheduled medications. Allergies: No known drug allergies Cardiac Risk Factors: FHX of CAD Pretest Chest Pain Characteristics: No chest pain Exercise History: Physically active Lung Sounds: Clear to auscultation Heart Sounds: Regular Stress Test Details Test: Exercise stress testing was performed using a modified Sammy protocol. Nuclear Acquisition: Rest Tc-99m/Stress Tc-99m 1 day Rest Isotope: Tc-99m Sestamibi. Dose: 15.3 Date: 08/17/2019 Injection Time: 1115 Stress Isotope: Tc-99m Sestamibi. Dose: 46.3 Date: 08/17/2019 Injection Time: 1330 HR Max Heart Rate (APMHR): 195 bpm Resting HR Supine: 73 bpm Target HR (85% APMHR): 165 bpm Resting HR Standin bpm Max HR Achieved: 179 bpm % of APMHR: 91 Recovery HR: 105 bpm HR response to stress: Normal HR response to stress BP Resting BP Supine: 120/68 mmHg Resting BP Standin/90 mmHg Max BP: 230/42 mmHg Recovery BP: 130/64 mmHg BP response to stress: Exaggerated BP Response ECG Resting ECG: Sinus Rhythm ST Change: Normal Stress ECG: Sinus Tachycardia ST Change: No significant ST segment changes Arrhythmia: None Recovery ECG: Sinus Rhythm Recovery ST Change: No significant ST segment changes Recovery Arrhythmia: None Clinical Time of Stop for Sammy: 0900 Reason for Termination: Fatigue Stress Symptoms: General Fatigue Exercise duration: 9 min0 sec Highest Stage Achieved: Stage 3: 3.4 mph at 14% grade. Exercise capacity: 10.16 METs Functional Capacity: Mildly deminished capacity Scale: Active Stress ECG Conclusion 1. Patient exercised for 9 minutes (10 METS) 2. There is no evidence of ischemia on the ECG portion of this exam 3. The Green Score (8) estimates an annual cardiovascular mortality of 0% and a five year survival of 95%. Using the Green Score there is a low probability of any angiographic coronary disease. Protocol Used: Sammy Protocol Stress Test Summary STAGE Time (mins) Speed (mph) Grade (%) HR BP SYMPTOMS METS Supine 73 120/68 Standing 90 122/90 1 3 1.7 10 121 152/78 4.6 2 6 2.5 12 146 182/60 7 3 9 3.4 14 179 Lightheaded 10.2 1 min recovery 148 230/42 3 min recovery 119 180/60 No further lightheadedness 6 min recovery 112 150/72 105 130/64 MPI Conclusion No evidence of ischemia on the imaging portion of this exam. Patient's ejection fraction was within normal limits with no wall motion abnormality This represents a normal stress perfusion exam.
[2019-08-17] MEDS: Cyanocobalamin 500 MCG TAB PO (14:25)
[2019-08-17] MEDS: Normal Saline Flush 10 ML SYR IVP (14:25)
--- NOTE | 2019-08-17 16:02 | W.PM.PROGNOT ---
Date of Service Date of service: 08/17/19 Time of Service: 16:03 Assessment and Plan Assessment and plan (1) Chest pain: Status: Acute Assessment and plan: Ruled out for ACS. Exercise nuclear stress test was negative today. Chest pain resolved. I strongly suspect GI etiology. Continue PPI/carafate. (2) Near syncope: Status: Acute Assessment and plan: Suspect POTS/dysautonomia. D/c IVF. Start propranolol - discussing dose with neurology. Patient prefers to stay here to see how he feels with a new medication on board. (3) GARCIA (dyspnea on exertion): Status: Acute Assessment and plan: Echo/pro BNP/MPI negative. ?symptomatic tachycarida - I favor this. Plan to start propranolol today and observe. (4) Left sided numbness: Status: Acute Assessment and plan: MRI negative (noncontrast). MS still on differential. B12 slightly low - replete Tick panel is pending, but per Dr Horton Neurolyme is less likely. (5) DVT prophylaxis: Status: Acute Assessment and plan: not required in a 24 year old ambulatory male (6) Discharge planning issues: Status: Acute Assessment and plan: Full code Discharge home tomorrow if tolerates beta blockade. Subjective Subjective Interval history since last seen: Mr Ferguson states he has had no chest pain today, but got very dizzy and had palpitations during stress test. Got short of breath while running on the treadmill as well. No n/v. His stress test was negative. Echo did not reveal any pericardial effusion, and EF was preserved. Exam Narrative Exam Narrative: General: well appearing male, pleasant, mildly anxious HEENT: EOMI, MMM Heart: RRR, no m/r/g, ?slightly tachycardic Lungs: CTAB GI: abdomen is soft, nontender, nondistended Extremities: no e/c/c BLE's Objective Objective Clinical Data: Abnormal lab results 08/16/19 08/17/19 Range/Units 13:50 06:25 C-Reactive Protein 0.37 H (0.0-0.3) mg/dL HDL Cholesterol 31 L (40-60) mg/dL Vital Signs Temperature 37.2 C 08/17/19 15:32 Temperature Source Tympanic 08/17/19 15:32 Pulse 98 H 08/17/19 15:32 Pulse Rhythm Regular 08/17/19 11:27 Pulse 86 08/15/19 18:50 Respiratory Rate 18 08/17/19 15:32 Respiratory Effort 08/17/19 11:27 Respiratory Depth Normal 08/17/19 11:27 Respiratory Pattern Normal 08/17/19 11:27 Blood Pressure 142/81 H 08/17/19 15:32 Blood Pressure Mean 87 08/15/19 18:46 Blood Pressure Position Supine 08/15/19 13:30 Pulse Oximetry 97 08/17/19 15:32 Oxygen Delivery Method Room Air 08/17/19 15:32 Oxygen Flow Rate 0 08/17/19 15:32 Pain Level 0 08/17/19 15:32 Comment 08/17/19 00:24 Intake & Output 08/16/19 08/17/19 08/17/19 23:59 11:59 23:59 Intake Total 1599 / 1959 2897.5 / 3147.5 250 / 3147.5 Balance 1599 2897.5 / 3147.5 250 / 3147.5 Weight 113.6 kg Intake: IV 1000 / 1000 2897.5 / 2897.5 Oral 600 / 960 0 / 250 250 / 250 Other: Comment VOIDED IN TOILET AND FLUSHED. Stool Size Moderate Stool Characteristics Soft Formed Voiding Methods Toilet Toilet Toilet Laboratory Results WBC 8.96 k/cumm (4.4-10.8) 08/15/19 13:35 RBC 5.18 m/cumm (4.50-6.00) 08/15/19 13:35 Hgb 14.4 g/dL (13.5-17.5) 08/15/19 13:35 Hct 42.2 % (40.0-50.0) 08/15/19 13:35 MCV 81.5 fL (80-95) 08/15/19 13:35 MCH 27.8 pg (27.0-33.0) 08/15/19 13:35 MCHC 34.1 g/dL (32.0-36.0) 08/15/19 13:35 RDW 12.8 % (11.8-14.1) 08/15/19 13:35 Plt Count 327 x1000/uL (130-400) 08/15/19 13:35 MPV 9.5 fL (8.0-11.0) 08/15/19 13:35 Immature Gran % 0.1 08/15/19 13:35 Neutrophils % 68.1 08/15/19 13:35 Lymphocytes % 23.5 08/15/19 13:35 Monocytes % 6.6 08/15/19 13:35 Eosinophils % 1.5 08/15/19 13:35 Basophils % 0.2 08/15/19 13:35 Absolute Neutrophils 6.10 k/cumm (1.2-6.7) 08/15/19 13:35 Absolute Lymphocytes 2.11 k/cumm (1.2-3.4) 08/15/19 13:35 Absolute Monocytes 0.59 k/cumm (0.11-0.7) 08/15/19 13:35 Absolute Eosinophils 0.13 k/cumm (0.0-0.7) 08/15/19 13:35 Absolute Basophils 0.02 k/cumm (0.0-0.2) 08/15/19 13:35 ESR 12 mm/hr (0-15) 08/16/19 13:50 APTT 26.5 sec (21.0-31.4) 08/15/19 13:35 Sodium 143 mmol/L (136-145) 08/16/19 08:15 Potassium 3.8 mmol/L (3.5-5.1) 08/16/19 08:15 Chloride 107 mmol/L (98-107) 08/16/19 08:15 Carbon Dioxide 28.5 mmol/L (21.0-32.0) 08/16/19 08:15 Anion Gap 7.5 mmol/L (3-11) 08/16/19 08:15 BUN 14 mg/dL (7-18) 08/16/19 08:15 Creatinine 0.82 mg/dL (0.70-1.30) 08/16/19 08:15 Estimated GFR/1.73 m2 >= 60.00 (mL/min/1.73m2) 08/16/19 08:15 Glucose 104 mg/dL (74-106) 08/16/19 08:15 Calcium 9.0 mg/dL (8.5-10.1) 08/16/19 08:15 Magnesium 1.7 mg/dL (1.8-2.4) L 12/04/19 08:15 Total Bilirubin 0.3 mg/dL (0.2-1.0) 08/15/19 13:35 AST 15 U/L (15-37) 08/15/19 13:35 ALT 29 U/L (16-63) 08/15/19 13:35 Alkaline Phosphatase 92 U/L (46-116) 08/15/19 13:35 Troponin I < 0.05 ng/Ml (<0.06) 08/16/19 13:50 C-Reactive Protein 0.37 mg/dL (0.0-0.3) H 08/16/19 13:50 NT-Pro-B Natriuret Pep 10 pg/mL (<300) 08/16/19 13:50 Total Protein 7.8 g/dL (6.4-8.2) 08/15/19 13:35 Albumin 3.8 g/dL (3.4-5.0) 08/15/19 13:35 Triglycerides 74 mg/dL (<150) 08/17/19 06:25 Total Cholesterol 114 mg/dL (<200) 08/17/19 06:25 LDL Cholesterol, Calc 69 mg/dL 08/17/19 06:25 HDL Cholesterol 31 mg/dL (40-60) L 08/17/19 06:25 Vitamin B12 529 pg/mL (193-986) 08/16/19 13:50 Lyme Disease Antibody Negative (Negative) 08/16/19 08:15
--- NOTE | 2019-08-17 16:04 | W.PM.PROGNOT ---
Date of Service Date of service: 08/17/19 Time of Service: 16:05 Assessment and Plan Assessment and plan (1) Postural orthostatic tachycardia syndrome: Status: Acute (2) Migraine headache with aura: Status: Acute Qualifiers: Status migrainosus presence: without status migrainosus Intractability: not intractable Qualified Code(s): G43.109 - Migraine with aura, not intractable, without status migrainosus (3) Left sided numbness: Status: Acute Assessment and plan: Mr. Ferguson is a 24 year-old, right-handed young man with a PMH of hyperlipidemia, ED, and migraine headaches with/wo aura with a 1 year history of exertional tachycardia, dyspnea, and lightheadedness with more persistent symptoms in the last 2 weeks along with chest pain and constant palpitations. His neurological exam was normal. He had a normal brain MRI. Extensive cardiac testing was negative (telemetry, echo, stress test). Initial bedside orthostatic tilt testing was consistent with Postural Orthostatic Tachycardia Syndrome. It's possible that his symptoms for the last 6 months could be due to dysautonomia associated with POTS which I discussed him and his mother. Chest pain and GARCIA are described in POTS. Further differential includes migraine. He has known and frequent migraine headaches with aura. Precordial migraine is a well described migraine phenomenom manifested by chest pain, however, GARCIA would not be a typical symptom of migraine. GI/GERD remains in the differential as well. He was placed on a PPI and his chest pain has now resolved.... I recommend starting propranolol 10mg BID for treatment of POTS, tachycardia/palpitations, migraine, +/- anxiety. ADRs were discussed. This may worsen his ED. He has flushing with current ED medication and I advised he discuss with his urologist if there are better options for him. He will contact me Wednesday if no improvement in his palpitations at which time we can increase it. I don't have an explanation for his subjection left face/neck sensory symptoms. He should follow-up in the neurology clinic in 4-6 weeks. Subjective Subjective Interval history since last seen: His chest pain has resolved. He continues to have frequent sensations of tachycardia/palpitations +/- lightheadedness. Tele has been unremarkable. His cardiac stress test was normal today. His brain MRI was also normal. I reviewed those images personally. Orthostatic tilt testing today was negative for dysautonomia. Exam Narrative Exam Narrative: Physical Exam: Constitutional: Patient of apparent stated age, well nourished, well developed, no acute distress Neuro: MS/Language/Speech: Alert, oriented, clear language (fluency and comprehension), no dysarthria Gait: normal base and arm-swing Objective Objective Clinical Data: Abnormal lab results 08/16/19 08/17/19 Range/Units 13:50 06:25 C-Reactive Protein 0.37 H (0.0-0.3) mg/dL HDL Cholesterol 31 L (40-60) mg/dL Vital Signs Temperature 37.2 C 08/17/19 15:32 Temperature Source Tympanic 08/17/19 15:32 Pulse 98 H 08/17/19 15:32 Pulse Rhythm Regular 08/17/19 11:27 Pulse 86 08/15/19 18:50 Respiratory Rate 18 08/17/19 15:32 Respiratory Effort 08/17/19 11:27 Respiratory Depth Normal 08/17/19 11:27 Respiratory Pattern Normal 08/17/19 11:27 Blood Pressure 142/81 H 08/17/19 15:32 Blood Pressure Mean 87 08/15/19 18:46 Blood Pressure Position Supine 08/15/19 13:30 Pulse Oximetry 97 08/17/19 15:32 Oxygen Delivery Method Room Air 08/17/19 15:32 Oxygen Flow Rate 0 08/17/19 15:32 Pain Level 0 08/17/19 15:32 Comment 08/17/19 00:24 Intake & Output 08/16/19 08/17/19 08/17/19 23:59 11:59 23:59 Intake Total 1599 2897.5 / 3147.5 250 / 3147.5 Balance 1599 2897.5 / 3147.5 250 / 3147.5 Weight 113.6 kg Intake: IV 1000 / 1000 2897.5 / 2897.5 Oral 600 / 960 0 / 250 250 / 250 Other: Comment VOIDED IN TOILET AND FLUSHED. Stool Size Moderate Stool Characteristics Soft Formed Voiding Methods Toilet Toilet Toilet Laboratory Results WBC 8.96 k/cumm (4.4-10.8) 08/15/19 13:35 RBC 5.18 m/cumm (4.50-6.00) 08/15/19 13:35 Hgb 14.4 g/dL (13.5-17.5) 08/15/19 13:35 Hct 42.2 % (40.0-50.0) 08/15/19 13:35 MCV 81.5 fL (80-95) 08/15/19 13:35 MCH 27.8 pg (27.0-33.0) 08/15/19 13:35 MCHC 34.1 g/dL (32.0-36.0) 08/15/19 13:35 RDW 12.8 % (11.8-14.1) 08/15/19 13:35 Plt Count 327 x1000/uL (130-400) 08/15/19 13:35 MPV 9.5 fL (8.0-11.0) 08/15/19 13:35 Immature Gran % 0.1 08/15/19 13:35 Neutrophils % 68.1 08/15/19 13:35 Lymphocytes % 23.5 08/15/19 13:35 Monocytes % 6.6 08/15/19 13:35 Eosinophils % 1.5 08/15/19 13:35 Basophils % 0.2 08/15/19 13:35 Absolute Neutrophils 6.10 k/cumm (1.2-6.7) 08/15/19 13:35 Absolute Lymphocytes 2.11 k/cumm (1.2-3.4) 08/15/19 13:35 Absolute Monocytes 0.59 k/cumm (0.11-0.7) 08/15/19 13:35 Absolute Eosinophils 0.13 k/cumm (0.0-0.7) 08/15/19 13:35 Absolute Basophils 0.02 k/cumm (0.0-0.2) 08/15/19 13:35 ESR 12 mm/hr (0-15) 08/16/19 13:50 APTT 26.5 sec (21.0-31.4) 08/15/19 13:35 Sodium 143 mmol/L (136-145) 08/16/19 08:15 Potassium 3.8 mmol/L (3.5-5.1) 08/16/19 08:15 Chloride 107 mmol/L (98-107) 08/16/19 08:15 Carbon Dioxide 28.5 mmol/L (21.0-32.0) 08/16/19 08:15 Anion Gap 7.5 mmol/L (3-11) 08/16/19 08:15 BUN 14 mg/dL (7-18) 08/16/19 08:15 Creatinine 0.82 mg/dL (0.70-1.30) 08/16/19 08:15 Estimated GFR/1.73 m2 >= 60.00 (mL/min/1.73m2) 08/16/19 08:15 Glucose 104 mg/dL (74-106) 08/16/19 08:15 Calcium 9.0 mg/dL (8.5-10.1) 08/16/19 08:15 Magnesium 1.7 mg/dL (1.8-2.4) L 08/16/19 08:15 Total Bilirubin 0.3 mg/dL (0.2-1.0) 08/15/19 13:35 AST 15 U/L (15-37) 08/15/19 13:35 ALT 29 U/L (16-63) 08/15/19 13:35 Alkaline Phosphatase 92 U/L (46-116) 08/15/19 13:35 Troponin I < 0.05 ng/Ml (<0.06) 08/16/19 13:50 C-Reactive Protein 0.37 mg/dL (0.0-0.3) H 08/16/19 13:50 NT-Pro-B Natriuret Pep 10 pg/mL (<300) 08/16/19 13:50 Total Protein 7.8 g/dL (6.4-8.2) 08/15/19 13:35 Albumin 3.8 g/dL (3.4-5.0) 08/15/19 13:35 Triglycerides 74 mg/dL (<150) 08/17/19 06:25 Total Cholesterol 114 mg/dL (<200) 08/17/19 06:25 LDL Cholesterol, Calc 69 mg/dL 08/17/19 06:25 HDL Cholesterol 31 mg/dL (40-60) L 08/17/19 06:25 Vitamin B12 529 pg/mL (193-986) 08/16/19 13:50 Lyme Disease Antibody Negative (Negative) 08/16/19 08:15
--- NOTE | 2019-08-17 17:50 | PDOC.CMPRO ---
Care Management Progress Note S/O: Stan continues work up for concerning symptoms. He remains pleasant in interaction. CM continues to follow. A: 24 year old male admitted to [facility] 08/15/19 for Chest Pain P: Stan continue to be closely monitored at this time, he will be discharged home when medically ready per provider. No additional services anticipated at this time. CM will continue to provide support for on going discharge planning.
[2019-08-17] MEDS: Propranolol 10 MG TAB PO (21:24)
[2019-08-18] VITALS (8 sets, daily range): BP systolic 114–135; BP diastolic 64–83; PULSE 61–79; RESP 16–20; TEMP 36.3–37.1; O2SAT 96–98
[2019-08-18] MEDS: Propranolol 10 MG TAB PO (08:04)
[2019-08-18] MEDS: Sucralfate 1 GM TAB PO ×2 (08:04→12:01)
[2019-08-18] MEDS: Cyanocobalamin 500 MCG TAB PO (08:04)
[2019-08-18] MEDS: Pantoprazole 40 MG VIAL IVP (10:00)
[2019-08-18] MEDS: Normal Saline Flush 10 ML SYR IVP (10:01)
--- NOTE | 2019-08-18 11:30 | PDOC.CMDIS ---
LACE Index Scoring Tool - Questions: Length of Stay (in days): 1 Acuity (Admit via E.D.?): Yes E.D. Visits: 2 - Answers: Total Score: 6 Risk of Readmission: Low Risk Care Management Discharge Reason for Hospitalization: Chest Pain Discharge Plan: Stan will be discharged home when medically ready per provider. No additional services anticipated at this time. He will transport via private vehicle with family. Patient/Family Education Needs: Review discharge instructions, discuss Ask Me Three.
--- NOTE | 2019-08-18 14:48 | DSE_ITS ---
Date of service: 08/18/19 Time of Service: 14:48 DS: Diagnosis Discharge Diagnosis (1) Postural orthostatic tachycardia syndrome: Status: Acute (2) Migraine headache with aura: Status: Acute (3) Left sided numbness: Status: Acute (4) Atypical chest pain: Status: Resolved Asessment and Plan: Thought to be due to GI causes (5) GERD (gastroesophageal reflux disease): Status: Chronic (6) Near syncope: Status: Resolved (7) B12 deficiency: Status: Acute Discharge Plan Disposition Patient Disposition: HOME Condition: Stable Discharge Details Chief Complaint: Chest Pain Reason For Visit: CP Admit Date/Time: 08/17/19 16:05 Admit Provider: Maurice Purdy Attending Provider: Maurice Purdy Primary Care Provider: Massiel oRger ED Provider: Kelly Henriquez [facility] Course Hospital Course: Mr Ferguson is a 24 year old male with PMHx of migraines with aura, ED, prior workup for nausea/vomiting, as well as an episode of chest pain in February of 2019, who was admitted to [facility] hospitalist service (observation 08/15/19 - 08/17/19, full admit 08/17/19-08/18/19) for atypical chest pain, palpitations, accompanied by shortness of breath, and recurrent near-syncopal episodes. He ruled out for an acute PE. His chest pain had started a week and a half prior to this presention after an episode of vomiting and appears to best have responded to GI cockatil and PPI, likely representing GERD/esophagitis. He had a negative exercise nuclear stress test and his echo was unremarkable. As far as his dizziness, palpitations, and complains of occasional shortness of breath, the patient's presentation is suspicious for POTS. He was evaluated by Dr Horton of neurology, whose recommendations were to trial propranolol. With the dose of 10 mg PO BID, his heart rates dipped to 40 overnight, but are in 60-70's at the time of discharge with the dose lowered to 5 mg PO BID. He is being discharged home with a holter monitor. He is instructed that he may take 1 extra dose of 5 mg of propranolol in the middle of the day if palpitations recur. His symptoms of palpitations and dizziness have completely resolved with this therapy. Finally, there is still an unresolved question of L facial and neck, as well as LUE numbness which has been going on for several months. For this, the patient had an MRI of the brain without contrast, which was negative. He will need to follow up with neurology for further investigation of his symptoms and, ultimately, to rule out MS. He does have a slight B12 deficiency, which is being replaced. The patient is medically stable for discharge home today with a holter monitor. His discharge summary and completion of discharge paperwork took 45 minutes on the day of discharge. Home Meds and New Rx's Prescriptions: New propranolol 10 mg Tablet 5 mg PO BID-TID Qty: 60 RF: 0 cyanocobalamin (vitamin B-12) [Vitamin B-12] 500 mcg Tablet 500 mcg PO DAILY Qty: 30 RF: 0 sucralfate 1 gram Tablet See Rx Instructions .ROUTE .COMPLEX Qty: 84 RF: 0 pantoprazole [Protonix] 40 mg tablet,delayed release (DR/EC) 40 mg PO DAILY Qty: 30 RF: 0 Continued sildenafil [Viagra] 100 mg tablet 100 mg PO PRN Qty: 8 RF: 12 ibuprofen [Advil] 200 mg Tablet 800 mg PO Q6H PRNRF: 0 acetaminophen [Tylenol] 325 MG tablet 650 mg PO DIRECTED PRNRF: 0 Discharge Instructions Instructions: Propranolol (By mouth), Sucralfate (By mouth), Pantoprazole (By mouth) Additional Instructions: Return to the hospital with any more feeling like you might faint, fever, bleeding, chest pain, or shortness of breath. Follow up with your PCP and call Dr Horton on Wednesday. Stand Alone Forms: Nursing Discharge Form Referrals: Massiel Roger NP [Primary Care Provider] - 08/25/19 10:45 am Sofie Horton MD [ [facility] STAFF PHYSICIAN] - Activity:: Activity as Tolerated Equipment/Supplies:: No Equipment Needed Diet:: As Tolerated Discharge Orders Discharge Orders: Discharge Order (Routine); Ordered 08/18/19 Ordered By: Maryanne Westbrook Other Ambulatory Orders: Holter Monitor (Outpt) (ONCE) Timeframe: [id number] Facility: [facility] - Location: Respiratory Therapy Ordered By: Maryanne Westbrook DS: Summary Status at Discharge Functional status at discharge: independent ambulation Overall status at discharge: patient is back to baseline Mental Status: mental status grossly normal Speech and Movement: speech and movement normal Mood: congruent mood Affect: normal affect Exam Narrative Exam Narrative: General: well appearing male, pleasant, less anxious HEENT: EOMI, MMM Heart: RRR, no m/r/g Lungs: CTAB GI: abdomen is soft, nontender, nondistended Extremities: no e/c/c BLE's Psych Mental Status: mental status grossly normal Speech and Movement: speech and movement normal Mood: congruent mood Affect: normal affect DS: Data Vitals/I&O Vitals and I&O: Vital Signs Temperature 37 C 08/18/19 12:54 Temperature Source Tympanic 08/18/19 12:54 Pulse 73 08/18/19 12:54 Pulse Rhythm Regular 08/18/19 13:28 Pulse 86 08/15/19 18:50 Respiratory Rate 16 08/18/19 12:54 Respiratory Effort 08/18/19 13:28 Respiratory Depth Normal 08/18/19 13:28 Respiratory Pattern Normal 08/18/19 13:28 Blood Pressure 127/78 08/18/19 12:54 Blood Pressure Mean 87 08/15/19 18:46 Blood Pressure Position Supine 08/15/19 13:30 Pulse Oximetry 96 08/18/19 12:54 Oxygen Delivery Method Room Air 08/18/19 12:54 Oxygen Flow Rate 0 08/18/19 12:54 Pain Level 0 08/18/19 12:54 Comment 08/17/19 00:24 Intake & Output 08/17/19 08/18/19 08/18/19 23:59 11:59 23:59 Intake Total 1490 / 4387.5 390 / 630 240 / 630 Balance 1490 / 4387.5 390 / 630 240 / 630 Intake: IV 1000 / 3897.5 Oral 490 / 490 390 / 630 240 / 630 Other: Urine Appearance Clear Comment PT OOB TO BR DURING NOC VOIDED AND FLUSHED Voiding Methods Toilet Toilet Data Completed and Pending Completed studies during hospitalization [Text1]: CTA chest: No evidence of pulmonary embolus, thoracic aortic dissection or aneurysm. MRI brain: Normal brain MRI MPI;No evidence of ischemia on the imaging portion of this exam. Patient's ejection fraction was within normal limits with no wall motion abnormality This represents a normal stress perfusion exam. 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 Family History Grandfather Neoplasm Colon CA dx'ed early 60s Paternal Uncle Heart disease Myocardial infarction Paternal Uncle Heart disease Myocardial infarction Social History Smoking/Tobacco Use Status: Never Alcohol Intake: former Drug use: Never Substance use type: does not use Household members: other Details: 4 Number of Children: 0 Communication Needs: None Education Level: high school Do you need help understanding health information?: Never current occupation: [employer] What type of physical activity do you participate in: walking Frequency: 1-2 times per week Seatbelt use: always Helmet use: Yes Do you feel safe in your relationship?: Yes
[2019-08-18 16:59] LABS: Anaplasma phagocytophilum Negative (Negative); B. miyamotoi PCR Negative (Negative); Babesia divergens/MO-1 Negative (Negative); Babesia duncani Negative (Negative); Babesia microti Negative (Negative); Ehrlichia chaffeensis Negative (Negative); Ehrlichia ewingii/canis Negative (Negative); Ehrlichia muris eauclairensis Negative (Negative)
--- NOTE | 2019-08-21 15:23 | W.HOLTRPT ---
Date of service: 08/21/19 Time of Service: 15:23 Holter Monitor Report Holter Monitor Note: There is a 48-hour Holter monitor ordered for the indication of palpitations. ?The patient was in normal sinus rhythm for majority of the recording. ?The patient's heart rate ranged from 38 bpm to 127 bpm with an average of 70 bpm. ?There were no episodes of supraventricular tachycardia. There were rare (less than 1%) premature atrial contractions and no runs of PACs. ?There were no episodes of ventricular tachycardia and one single ventricular ectopic beat over the recording time. ?There were no episodes of atrial fibrillation no pauses greater than 3 seconds and no evidence of high degree heart block. ?There were no diary recorded events.
== END 2019-08-18 17:19 | disposition home or self-care (01) | DRG 310 ==
LOC: ER 18:56 → MS 19:07
PROVIDERS: Student in an Organized Health Care Education/Training Program; Admitting Provider General Practice; Emergency Provider Physician Assistant; PCP Nurse Practitioner Family; Visit Provider Internal Medicine
DX: I49.8 Other specified cardiac arrhythmias (principal); R07.89 Other chest pain; R06.02 Shortness of breath; G43.109 Migraine with aura, not intractable, without status migrainosus; R20.0 Anesthesia of skin; K21.9 Gastro-esophageal reflux disease without esophagitis; E53.8 Deficiency of other specified B group vitamins; E78.5 Hyperlipidemia, unspecified; Z82.49 Family history of ischemic heart disease and other diseases of the circulatory system
CPT/HCPCS: 36415; 71275; 78452; 80048; 80053; 80061; 85652; 87798; 93005; 99222; 99226; 99232; 99239; 99255; 99285; 70551; 82607; 83735; 83880; 84484; 85025; 85730; 86140; 86618; 93010; 93017; 93225; 93306; 99219; G0378; J1885; J3490

== ENCOUNTER 2019-08-21 14:40 | Outpatient (CLI) | payer OTHER, SELFPAY | END 2019-08-21 15:00 | PROVIDERS: PCP Nurse Practitioner Family; Visit Provider General Practice | DX: R00.2 Palpitations (principal); I49.1 Atrial premature depolarization | CPT/HCPCS: 93226 ==

== ENCOUNTER 2020-05-27 10:29 | Outpatient (CLI) | payer OTHER, SELFPAY ==
[2020-05-29 05:57] LABS: Patient Race White; SARS-CoV-2 RNA Undetected (Undetected); SARS-CoV-2 Specimen Source Nasopharynx
== END 2020-05-27 10:49 ==
PROVIDERS: PCP Nurse Practitioner Family; Visit Provider Nurse Practitioner Family
DX: Z11.59 Encounter for screening for other viral diseases (principal)
CPT/HCPCS: U0003

== ENCOUNTER 2020-06-04 00:31 | Outpatient (CLI) | payer OTHER, SELFPAY ==
--- NOTE | 2020-06-04 07:45 | DI.US_ITS ---
EXAM: US BREAST LT COMPLETE CLINICAL HISTORY: Tender lump, ?cyst vs. other? n63.0 TECHNIQUE: Ultrasound right breast performed using standard protocol. COMPARISON: No exams were available for comparison FINDINGS: No solid or cystic masses, hypoechoic foci, areas of abnormal shadowing, or areas of skin thickening. Comparison is made to the contralateral chest. IMPRESSION: No sonographically suspicious finding. DATA REPOSITORY:
== END 2020-06-04 00:51 ==
PROVIDERS: PCP Nurse Practitioner Family; Visit Provider Nurse Practitioner Family
DX: N63.20 Unspecified lump in the left breast, unspecified quadrant (principal)
CPT/HCPCS: 76642

== ENCOUNTER 2020-09-17 03:32 | Outpatient (CLI) | payer OTHER, SELFPAY ==
[2020-09-17 17:54] LABS: LH 3.7 mIU/mL (1.5-9.3)
[2020-09-18 17:02] LABS: Beta-HCG, Quant, Tumor Marker <0.6 IU/L (<1.4)
[2020-09-23 10:34] LABS: Estradiol, Mass Spectrometry 24 pg/mL (10-40); Estrone 23 pg/mL (10-60)
[2020-09-23 14:36] LABS: Testosterone, Bioavailable 147 ng/dL (83-257); Testosterone, Free 13.4 ng/dL (5.05-19.8); Testosterone, Total 263 ng/dL (240-950)
== END 2020-09-17 03:52 ==
PROVIDERS: PCP Nurse Practitioner Family; Visit Provider Surgery
DX: N52.9 Male erectile dysfunction, unspecified (principal); N62 Hypertrophy of breast; N63.20 Unspecified lump in the left breast, unspecified quadrant; R00.0 Tachycardia, unspecified; I95.1 Orthostatic hypotension
CPT/HCPCS: 36415; 84402; 84403; 84410; 82670; 82679; 83002; 84443; 84702

== ENCOUNTER 2020-12-31 09:25 | Outpatient (CLI) | payer OTHER, SELFPAY ==
[2021-01-01 12:52] LABS: COVID-19 RT-PCR UVMMC Result Negative (Negative)
== END 2020-12-31 09:26 | disposition home or self-care (01) ==
PROVIDERS: PCP Nurse Practitioner Family; Visit Provider Nurse Practitioner Family
DX: Z20.822 Contact with and (suspected) exposure to COVID-19 (principal)
CPT/HCPCS: U0003

== ENCOUNTER 2021-03-24 10:08 | Outpatient (REF) | payer OTHER, SELFPAY ==
[2021-03-25 00:42] LABS: COVID-19 RT-PCR UVMMC Result Negative (Negative)
== END 2021-03-24 10:09 | disposition home or self-care (01) ==
LOC: LBO 10:08
PROVIDERS: PCP Nurse Practitioner Family; Visit Provider Nurse Practitioner Family
DX: Z20.822 Contact with and (suspected) exposure to COVID-19 (principal)
CPT/HCPCS: U0003

== ENCOUNTER 2021-05-18 12:54 | Emergency (ER) | payer OTHER, SELFPAY ==
[2021-05-18 13:02] VITALS: BP 144/76; PULSE 88; RESP 16; TEMP 36.4; O2SAT 100
--- NOTE | 2021-05-18 13:16 | ED.GENADUL_ITS ---
Discharge Plan Disposition Patient Disposition: HOME Condition: Stable Discharge Details Clinical Impression: Sore throat Primary Care Provider: Massiel Roger ED Provider: Maco Au Home Meds and New Rx's Prescriptions: New amoxicillin 500 mg tablet 500 mg PO BID Qty: 20 RF: 0 Continued sildenafil [Viagra] 100 mg tablet 100 mg PO PRN Qty: 8 RF: 12 propranolol 10 mg tablet 5 mg PO BID Qty: 135 RF: 3 pantoprazole [Protonix] 40 mg tablet,delayed release (DR/EC) 40 mg PO DAILY Qty: 90 RF: 3 ibuprofen [Advil] 200 mg Tablet 800 mg PO Q6H PRNRF: 0 cyanocobalamin (vitamin B-12) [Vitamin B-12] 500 mcg Tablet 500 mcg PO DAILY Qty: 30 RF: 0 acetaminophen [Tylenol] 325 MG tablet 650 mg PO DIRECTED PRNRF: 0 Discharge Instructions Instructions: Pharyngitis (ED) Additional Instructions: because of your close contact with someone with strep start amoxicillin you have a pending covid test if you have difficulty breathing or difficulty with swallowing liquids return to the emergency department Stand Alone Forms: PENDING COVID-19 TESTING Medical Decision Making 25 yo male comes in with sore throat that started this morning without fevers. HE states he has recently been around his niece who had strep and also his coworker he is around a lot just tested positive for covid. Patient denies difficulty swallowing, dyspnea, and feels well other than pain in posterior pharynx. He is speaking normally and has no submandibular swelling and no pain o jose the hyoid. No restricted neck movements, midline uvula, mild erthema of the posterior pharynx. Symptoms consistent with pharyngitis, strep test negative but given the close contact and exposure will start amoxicillin and also send a covid test. No findings to suggest retropharyngeal abscess, epiglotitis, or peritonsilar abscess. He is stable for d/c and return precautions given Differential Diagnosis Differential Diagnosis: strep, covid, allergies HPI General Mode of arrival: ambulatory . Date/Time Provider Initiated Documentation: 05/18/21 13:06 . Limitations to Documentation: no limitations . Information obtained by: patient . History of Present Illness 25 year old M presents to the emergency department with the chief complaint of throat pain, described as mild, Quality is described as aching, Patient reports no radiation. Patient started experiencing this hour(s) (4) and it has been constant. No relieving factors improve symptom(s), No exacerbating factors reported . Patient notes no other symptoms.. Related Data Home Medications Medication Instructions Recorded Confirmed acetaminophen [Tylenol] 650 mg PO DIRECTED PRN 11/06/16 05/18/21 sildenafil 100 mg tablet 100 mg PO PRN #8 tab-cap 09/02/18 05/18/21 ibuprofen [Advil] 800 mg PO Q6H PRN 08/15/19 05/18/21 cyanocobalamin (vitamin B-12) 500 mcg PO DAILY #30 tab 08/18/19 05/18/21 [Vitamin B-12] pantoprazole 40 mg tablet,delayed 40 mg PO DAILY #90 tab 09/25/20 05/18/21 release propranolol 10 mg tablet 5 mg PO BID #135 tab 09/25/20 05/18/21 amoxicillin 500 mg PO BID #20 tab 05/18/21 Previous Rx's Medication Instructions Recorded sildenafil 100 mg tablet 100 mg PO PRN #8 tab-cap 09/02/18 cyanocobalamin (vitamin B-12) 500 mcg PO DAILY #30 tab 08/18/19 [Vitamin B-12] pantoprazole 40 mg tablet,delayed 40 mg PO DAILY #90 tab 09/25/20 release propranolol 10 mg tablet 5 mg PO BID #135 tab 09/25/20 amoxicillin 500 mg PO BID #20 tab 05/18/21 Allergies Allergy/AdvReac Type Severity Reaction Status Date / Time No Known Allergies Allergy Verified 05/18/21 13:07 General Stated Complaint: Sorethroat ASHA: 4 Review of Systems All systems reviewed & are unremarkable except as noted in HPI and below Constitutional Constitutional: Denies chills, Denies fever(s) and Denies weakness ENT Ears, Nose, Mouth, and Throat: Denies change in voice Cardiovascular Cardiovascular: Denies chest pain and Denies dyspnea Respiratory Respiratory: Denies cough and Denies dyspnea Gastrointestinal Gastrointestinal: Denies abdominal pain, Denies nausea and Denies vomiting Musculoskeletal Musculoskeletal: Denies joint swelling Neurologic Neurologic: Denies weakness Psychiatric Psychiatric: Denies depression PFSH Medical History Anxiety and depression B12 deficiency Breast pain in male Corporo-venous occlusive erectile dysfunction (10/06/17) Erectile dysfunction GERD (gastroesophageal reflux disease) Gynecomastia, male Hepatic steatosis 11/08/2015 US; pt counseled 03/10/2019 IFG (impaired fasting glucose) Migraine headache with aura Obesity Other and unspecified hyperlipidemia (11/01/17) Surgical History History of esophagogastroduodenoscopy (EGD) (11/04/18) EGD with Dr Winnie Rinaldi, [facility], neg and neg bx, repeat as needed. Family History Grandfather No problems noted. 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 Pets and animals: Yes Pets and animals: dog(s) Sexually active: Yes Do you think of yourself as: straight/heterosexual Current gender identity: male What is your relationship status?: never How often do you talk on the phone with friends or family?: three or more times per week How often do you get together with friends or relatives?: three or more times per week How often do you attend mu-ism or advent services?: decline to answer Do you belong to any clubs or organized social groups?: no Panel score (0-1 are the most socially isolated patients): 1 What type of physical activity do you participate in: walking Duration: 15-30 minutes/day Frequency: 1-2 times per week Special link needs: No Seatbelt use: always Helmet use: Yes Drive intox or ride w/intox 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 Do you feel safe at home: Yes Do you feel safe in your relationship?: Yes Exam Const General: no acute distress Orientation: alert HENMT Head: normal to inspection Ears: external ears normal General nose exam: external nose normal Mouth: moist mucous membranes Eyes General: appearance normal, both eyes and all related structures Neck Neck: normal visual inspection Resp Effort & Inspection: normal respiratory effort and able to speak in complete sentences Cardio Rate: regular rate Skin General skin exam: no rashes or lesions noted Neuro General: patient alert and patient oriented x3 Extrem General: normal to inspection Psych Mental Status: mental status grossly normal Course Vital Signs Vital signs: Vital Signs Temperature 36.4 C L 05/18/21 13:02 Pulse 88 05/18/21 13:02 Respiratory Rate 16 05/18/21 13:02 Blood Pressure 144/76 H 05/18/21 13:02 Pulse Oximetry 100 05/18/21 13:02 Temperature 36.4 C L 05/18/21 13:02 Temperature Source Temporal Artery Scan 05/18/21 13:02 Pulse 88 05/18/21 13:02 Respiratory Rate 16 05/18/21 13:02 Respiratory Effort Non-Labored 05/18/21 13:06 Blood Pressure 144/76 H 05/18/21 13:02 Blood Pressure Position Sitting 05/18/21 13:02 Pulse Oximetry 100 05/18/21 13:02 Oxygen Delivery Method Room Air 05/18/21 13:02 Oxygen Flow Rate 0 05/18/21 13:02 Pain Level 3 05/18/21 13:02 Lab/Test Results Lab/Test Results: 05/18/21 13:11 Pharynx Group A Streptococcus Culture - Pending POC Strep Test-MANJEET(Rapid) Start: 05/18/21 13:02 Freq: .Rapid Strep Test Status: Active Protocol: [place] 05/18/21 13:12 [facility] [place]18[place]21 13:12 [facility] [id number] Strep test-MANJEET(Rapid)-POC POC-Strep test-MANJEET (Rapid) Negative POC-Strep test-MANJEET (Rapid) Negative
[2021-05-21 15:35] LABS: COVID-19 RT-PCR UVMMC Result Negative (Negative)
--- NOTE | 2021-05-21 18:32 | NUR.NOTE ---
negative Covid result called to Stan. Verbalizes understanding.Nursing Note:
== END 2021-05-18 13:22 | disposition home or self-care (01) ==
PROVIDERS: Emergency Provider Emergency Medicine; PCP Nurse Practitioner Family
DX: J02.9 Acute pharyngitis, unspecified (principal); Z20.822 Contact with and (suspected) exposure to COVID-19
CPT/HCPCS: 87880; 99283; U0003; 87081

== ENCOUNTER 2021-05-27 09:38 | Outpatient (CLI) | payer OTHER, SELFPAY ==
[2021-05-27 20:20] LABS: COVID-19 RT-PCR UVMMC Result Negative (Negative)
== END 2021-05-27 09:39 | disposition home or self-care (01) ==
PROVIDERS: PCP Nurse Practitioner Family; Visit Provider Nurse Practitioner Family
DX: Z20.822 Contact with and (suspected) exposure to COVID-19 (principal)
CPT/HCPCS: U0003

== ENCOUNTER 2021-06-10 09:54 | Outpatient (CLI) | payer OTHER, SELFPAY ==
[2021-06-10 20:22] LABS: COVID-19 RT-PCR UVMMC Result Negative (Negative)
== END 2021-06-10 09:55 | disposition home or self-care (01) ==
LOC: LBO 09:54
PROVIDERS: PCP Nurse Practitioner Family; Visit Provider Nurse Practitioner Family
DX: Z20.822 Contact with and (suspected) exposure to COVID-19 (principal)
CPT/HCPCS: U0003

== ENCOUNTER 2021-07-18 03:14 | Outpatient (CLI) | payer OTHER, SELFPAY ==
[2021-07-18 20:25] LABS: COVID-19 RT-PCR UVMMC Result Negative (Negative)
== END 2021-07-18 03:15 | disposition home or self-care (01) ==
LOC: LBO 03:14
PROVIDERS: PCP Nurse Practitioner Family; Visit Provider Nurse Practitioner Family
DX: Z20.822 Contact with and (suspected) exposure to COVID-19 (principal)
CPT/HCPCS: U0003

== ENCOUNTER 2021-10-15 13:38 | Outpatient (CLI) | payer OTHER, SELFPAY ==
[2021-10-15 14:05] VITALS: BP 141/85; PULSE 90; RESP 22; TEMP 36.8; O2SAT 96
[2021-10-15 15:04] VITALS: RESP 22; TEMP 36.8; O2SAT 96
[2021-10-15 15:40] VITALS: BP 116/64; PULSE 84; RESP 22; TEMP 36.9; O2SAT 95
== END 2021-10-15 13:39 | disposition home or self-care (01) ==
PROVIDERS: PCP Nurse Practitioner Family; Visit Provider Family Medicine
DX: U07.1 COVID-19 (principal)
CPT/HCPCS: 96365; Q0047

== ENCOUNTER 2022-05-20 08:56 | Emergency (ER) | payer OTHER, SELFPAY ==
[2022-05-20 09:01] VITALS: BP 160/82; PULSE 75; RESP 16; TEMP 37; O2SAT 96
--- NOTE | 2022-05-20 09:15 | W.ED.GENAD ---
Discharge Plan Disposition Patient Disposition: HOME Condition: Improving Discharge Details Clinical Impression: Back pain Primary Care Provider: Massiel Roger ED Provider: Saúl Ponce Home Meds and New Rx's Prescriptions: New cyclobenzaprine 5 mg tablet 5 mg PO QHS PRNQty: 8 0RF Continued sildenafil [Viagra] 100 mg tablet 100 mg PO PRN Qty: 8 12RF Label Comments: 08/15/19 ER- Pt states hasnt taken in a long time pantoprazole [Protonix] 40 mg tablet,delayed release (DR/EC) 40 mg PO QAM Qty: 90 3RF Rx Instructions: Take 40 mg once daily in the morning at least 30 minutes before first meal ibuprofen [Advil] 200 mg Tablet 800 mg PO Q6H PRN cyanocobalamin (vitamin B-12) [Vitamin B-12] 500 mcg Tablet 500 mcg PO DAILY Qty: 30 0RF acetaminophen [Tylenol] 325 MG tablet 650 mg PO DIRECTED PRN Discharge Instructions Instructions: Back Pain (ED) Additional Instructions: Flexeril as directed, this medication may cause drowsiness. Gentle stretching as tolerated. [id number] Tylenol and/or Motrin as directed for discomfort. Cool and/or warm compresses every 2 hours for 20 minutes. Please watch for new or worsening symptoms and return to the ER for any concerns. Lastly, I would like you to contact your primary care provider to make them aware of your ongoing discomfort discussed outpatient follow-up and imaging if necessary Medical Decision Making 26-year-old gentleman reports chronic back pain intermittent for approximately 8 years status post lifting a heavy object at work and feeling a pop. He states that he was cleared to return back to work. He reports that the pain began this Wednesday, no obvious trauma. Pain is moderate to severe worse with movement. Took spel-yyb-[id number] anti-inflammatory medication with little relief. Occasionally gets radiculopathy in the left leg but none now. Denies fever, abdominal pain, IV drug use, change of bowel or bladder function. Patient states that he is tired of all of this and is hopeful to obtain an MRI today. He appears well, nontoxic, neurologically intact. Plan is to provide IM Toradol. Discussed limitations obtaining MRI emergently here in the ER, offered x-ray with outpatient follow-up and potential outpatient imaging. Patient agreeable to this plan X-ray unremarkable. Discussed findings with patient. He questions if a prescription for Flexeril may be beneficial at bedtime Standard discharge and return precautions were provided. Patient understands, is agreeable to this plan, and has no additional questions or concerns upon discharge. This documentation was generated using [employer] system, please disregard any oddities of phrase or misspellings. Medical Records Medical records reviewed: Yes I reviewed the patient's medical records. Imaging Data Radiologic Study: Attestation: I personally reviewed and interpreted this imaging study as follows: Imaging: X-Ray Radiologist's impression: Exam(s) XR LUMBAR SPINE COMPLETE EXAM: XR LUMBAR SPINE COMPLETE CLINICAL HISTORY: pain. l radiculopathy. TECHNIQUE: 2D digital imaging was performed of the lumbar spine. Five images were obtained. AP, lateral, right oblique, left oblique and L5-S1 spot views were obtained. COMPARISON: CT CT CHEST PE CTA from 08/15/2019 FINDINGS: BONES: No fracture or destructive lesion. Vertebral bodies are unremarkable. No facet hypertrophy identified. DISKS: Intervertebral disc spaces are maintained. ALIGNMENT: Lumbar spinal alignment is within normal limits. No spondylolysis or spondylolisthesis. SOFT TISSUE: Normal. IMPRESSION: Unremarkable radiographs of the lumbar spine. HPI General Mode of arrival: ambulatory. Date/Time Provider Initiated Documentation: 05/20/22 09:15. Limitations to Documentation: no limitations. Information obtained by: patient. History of Present Illness 26 year old M presents to the emergency department with the chief complaint of back pain, described as moderate, with intensity rated at 7. Quality is described as aching, and is localized to the back. Patient reports no radiation. Patient started experiencing this day(s) (3) and it has been intermittent. Immobilization improves symptom(s), Movement worsens symptoms . Patient notes no other symptoms.. Patient did receive the following treatments prior to arrival, NSAID Related Data Home Medications Medication Instructions Recorded Confirmed acetaminophen 325 mg tablet 650 mg PO DIRECTED PRN 11/06/16 05/20/22 (Tylenol) sildenafil 100 mg tablet (Viagra) 100 mg PO PRN #8 tab-caps 09/02/18 05/20/22 ibuprofen 200 mg tablet (Advil) 800 mg PO Q6H PRN 08/15/19 05/20/22 cyanocobalamin (vitamin B-12) 500 500 mcg PO DAILY #30 tabs 08/18/19 05/20/22 mcg tablet (Vitamin B-12) pantoprazole 40 mg tablet,delayed 40 mg PO QAM #90 tabs 08/27/21 05/20/22 release (Protonix) cyclobenzaprine 5 mg tablet 5 mg PO QHS PRN #8 tabs 05/20/22 Previous Rx's Medication Instructions Recorded sildenafil 100 mg tablet (Viagra) 100 mg PO PRN #8 tab-caps 09/02/18 cyanocobalamin (vitamin B-12) 500 500 mcg PO DAILY #30 tabs 08/18/19 mcg tablet (Vitamin B-12) pantoprazole 40 mg tablet,delayed 40 mg PO QAM #90 tabs 08/27/21 release (Protonix) cyclobenzaprine 5 mg tablet 5 mg PO QHS PRN #8 tabs 05/20/22 Allergies Allergy/AdvReac Type Severity Reaction Status Date / Time No Known Allergies Allergy Verified 05/20/22 09:08 General Stated Complaint: Nk/Back Pain ASHA: 4 Review of Systems Constitutional Constitutional: Denies fever(s) and Denies weakness Cardiovascular Cardiovascular: Denies chest pain and Denies dyspnea Respiratory Respiratory: Denies cough and Denies dyspnea Gastrointestinal Gastrointestinal: Denies abdominal pain, Denies fecal incontinence, Denies nausea and Denies vomiting Genitourinary Genitourinary: Denies difficulty urinating Musculoskeletal Musculoskeletal: Reports back pain, Denies numbness, Reports stiffness and Denies tingling Integumentary/Breasts Skin/Breast: Denies rash Neurologic Neurologic: Denies numbness, Denies tingling and Denies weakness PFSH All Active Problems (Updated 05/20/22 @ 10:44 by KENDAL Ireland) Back pain (Acute) Chalazion of both eyes (Acute 02/20/22) [place] ref to Dr. Gomez to excise Blepharitis of both eyes (Acute 02/20/22) Doxy offered, but not started yet Gynecomastia, male (Chronic) IFG (impaired fasting glucose) (Acute) Obesity (Chronic) Hepatic steatosis (Chronic) 11/08/2015 US; pt counseled 03/10/2019 Migraine headache with aura (Chronic) GERD (gastroesophageal reflux disease) (Chronic) B12 deficiency (Chronic) Postural orthostatic tachycardia syndrome (Acute) Left sided numbness (Acute) Corporo-venous occlusive erectile dysfunction (Chronic 06/18/17) Other and unspecified hyperlipidemia (Chronic 11/01/17) Medical History Anxiety and depression Surgical History History of esophagogastroduodenoscopy (EGD) (11/04/18) EGD with Dr Winnie Rinaldi, [place], neg and neg bx, repeat as needed. Family History Grandfather No problems noted. Paternal Uncle Heart disease Myocardial infarction Paternal Uncle Heart disease Myocardial infarction Maternal Grandfather Colon cancer Dx'ed early 60s Hypertension Paternal Grandfather Hypertension Social History Smoking/Tobacco Use Status: Never Smoking risk assessment performed?: Yes Alcohol Intake: current Alcohol Intake frequency: a few times a month Alcohol type: beer Drug use: Never Substance use type: does not use Caregiver/Support person: No Household members: other Details: 4 Housing: house Number of Children: 0 Communication Needs: None Education Level: high school Do you need help understanding health information?: Never current occupation: [employer] Pets and animals: Yes Pets and animals: dog(s) Sexually active: Yes Do you think of yourself as: straight/heterosexual Current gender identity: male What is your relationship status?: never How often do you talk on the phone with friends or family?: three or more times per week How often do you get together with friends or relatives?: three or more times per week How often do you attend episcopal or church services?: decline to answer Do you belong to any clubs or organized social groups?: no Panel score (0-1 are the most socially isolated patients): 1 What type of physical activity do you participate in: walking Duration: 15-30 minutes/day Frequency: 1-2 times per week Special link needs: No Seatbelt use: always Helmet use: Yes Drive intox or ride w/intox delivery driver/supervisor: No Do you feel safe at home: Yes Do you feel safe in your relationship?: Yes Exam Const General: cooperative, healthy appearing, comfortable and no acute distress Orientation: alert and awake HENMT Head: normal to inspection, normocephalic and atraumatic Eyes Conjunctivae: conjunctivae normal Neck Neck: normal visual inspection, full ROM, no meningeal signs, trachea midline and supple Resp Effort & Inspection: normal respiratory effort and able to speak in complete sentences Cardio Rate: regular rate Rhythm: regular rhythm GI Palpation: soft and nontender Back/Spine/Pelvis Back: no CVA tenderness and back tenderness (Mid lumbar, slightly worse on the left) Skin General skin exam: no rashes or lesions noted Neuro General: patient alert, patient awake, moves all extremities and no focal motor deficits Cognition: normal cognition Speech: speech normal Gait: normal gait Motor: muscle tone normal throughout and strength 5/5 throughout Sensory Exam: no sensory deficits noted Extrem General: normal to inspection, full ROM and capillary refill normal Psych Appearance: grossly normal Mental Status: mental status grossly normal Course Vital Signs Vital signs: Vital Signs Temperature 37.0 C 05/20/22 09:01 Pulse 75 05/20/22 09:01 Respiratory Rate 16 05/20/22 09:01 Blood Pressure 160/82 H 05/20/22 09:01 Pulse Oximetry 96 05/20/22 09:01 Temperature 37.0 C 05/20/22 09:01 Temperature Source Tympanic 05/20/22 09:01 Pulse 75 05/20/22 09:01 Respiratory Rate 16 05/20/22 09:01 Respiratory Effort Non-Labored 05/20/22 09:05 Blood Pressure 160/82 H 05/20/22 09:01 Blood Pressure Position Sitting 05/20/22 09:01 Pulse Oximetry 96 05/20/22 09:01 Oxygen Delivery Method Room Air 05/20/22 09:01 Oxygen Flow Rate 0 05/20/22 09:01 Pain Level 8 05/20/22 09:05 PAWSS Have you Been Recently Intoxicated or Drunk Within the Last 30 days?: No Have you Ever Experienced Previous Episodes of Alcohol Withdrawal?: No Have you ever Experienced Withdrawal Seizures?: No Have you ever Experienced Delirium Tremens(DT)s?: No Have you ever undergone Alcohol Rehabilitation Treatment (i.e, inpt ot outpatient treatment programs)?: No Have you ever Experienced Blackouts?: No Have you ever Combined Alcohol with other Downers within the last 90 days?: No Have you ever Combined Alcohol with any other Substance of Abuse during the last 90 days?: No Positive Blood Alcohol level on Presentation? [PCS.BAL]: No Evidence of Increased Autonomic Activity (i.e. HR>120, tremor, sweating, agitation, nausea)?: No Result: 0
[2022-05-20] MEDS: Ketorolac 60 MG/2 ML VIAL IM (09:36)
--- NOTE | 2022-05-20 10:03 | DI.RAD_ITS ---
Exam(s) XR LUMBAR SPINE COMPLETE EXAM: XR LUMBAR SPINE COMPLETE CLINICAL HISTORY: pain. l radiculopathy. TECHNIQUE: 2D digital imaging was performed of the lumbar spine. Five images were obtained. AP, la teral, right oblique, left oblique and L5-S1 spot views were obtained. COMPARISON: CT CT CHEST PE CTA from 08/15/2019 FINDINGS: BONES: No fracture or destructive lesion. Vertebral bodies are unremarkable. No facet hypertrophy arnaldo ntified. DISKS: Intervertebral disc spaces are maintained. ALIGNMENT: Lumbar spinal alignment is within normal limits. No spondylolysis or spondylolisthesis. SOFT TISSUE: Normal. IMPRESSION: Unremarkable radiographs of the lumbar spine. DATA REPOSITORY: RADIATION DOSE DELIVERED:
== END 2022-05-20 11:04 | disposition home or self-care (01) ==
PROVIDERS: Emergency Provider Physician Assistant; PCP Nurse Practitioner Family
DX: M54.50 Low back pain, unspecified (principal)
CPT/HCPCS: 96372; 99284; 72110; J1885

== ENCOUNTER → 2022-07-27 03:23 | Outpatient (CLI) | payer OTHER, SELFPAY ==
--- NOTE | 2022-07-27 06:30 | DI.MRI_ITS ---
Exam(s) MR LUMBAR SPINE WO EXAM: MR LUMBAR SPINE WO CLINICAL HISTORY: CHRONIC LOW BACK PAIN WITH BILAT SCIATICA, ACUTE FLARE UP, ,M54.41,M54.42. TECHNIQUE: Multiplanar multisequence MRI of the Lumbar spine was performed. COMPARISON: CR XR LUMBAR SPINE COMPLETE from 05/20/2022 FINDINGS: Bones: The last intervertebral disc space is designated the L5/S1 level for the numbering purpose of this examination. The vertebral body heights are well maintained. Alignment is satisfactory. The ma rrow signal characteristics are unremarkable. Cord: The conus tip ends at the T12 level. It is of normal size and signal intensity. T12-L1: No disc herniations or bulges are present. No central spinal canal or neural foraminal stenos is. L1-2: No disc herniations or bulges are present. No central spinal canal or neural foraminal stenosis . L2-3: No disc herniations or bulges are present. No central spinal canal or neural foraminal stenosis . L3-4: No disc herniations or bulges are present. No central spinal canal or neural foraminal stenosis . L4-5: Large central disc herniation with some superior extrusion of disc material. Be herniated mate rial measures approximately 12 millimeters transverse by 6 millimeters AP by 14 millimeter cephalo ca udad. There is significant compression of the thecal sac and severe central canal stenosis. No neur al foraminal narrowing.. L5-S1: Central disc herniation with mild inferior extrusion of disc material. Herniated disc materia l measures 18 by 5 by 10 millimeters. This causes moderate central canal stenosis. No neural forami nal narrowing. The visualized SI joints and sacrum are well maintained. Soft tissues: The paraspinal soft tissues are unremarkable. IMPRESSION: Large central disc herniations at L4-5 and L5-S1 causing significant central canal stenosis, greater at L4-5. DATA REPOSITORY:
== END ==
PROVIDERS: PCP Nurse Practitioner Family; Visit Provider Nurse Practitioner Family
DX: G89.29 Other chronic pain (principal); M54.41 Lumbago with sciatica, right side; M54.42 Lumbago with sciatica, left side; M51.26 Other intervertebral disc displacement, lumbar region; M51.27 Other intervertebral disc displacement, lumbosacral region
CPT/HCPCS: 72148

== ENCOUNTER 2022-11-18 02:56 | Outpatient (CLI) | payer OTHER, SELFPAY ==
[2022-11-18 07:56] LABS: Abs Immature Grans 0.02 10^3/uL (0.0-0.06); Absolute Basophil Count 0.08 10^3/uL (0.0-0.2); Absolute Eosinophil Count 0.18 10^3/uL (0.0-0.7); Absolute Lymphocyte Count 2.58 10^3/uL (1.2-3.4); Absolute Monocyte Count 0.64 10^3/uL (0.1-0.8); Absolute Neutrophil Count 4.98 10^3/uL (1.2-6.7); Basophils % 0.9; Eosinophils % 2.1; HCT 44.8 % (40.0-50.0); HGB 14.8 g/dL (13.5-17.5); Immature Grans % 0.2; Lymphocytes % 30.4; MCH 27.6 pg (27.0-33.0); MCV 84 fL (80-95); MPV 9.3 fL (8.0-11.0); Monocytes % 7.5; Neutrophils % 58.9; Platelet Count 277 10^3/uL (130-400); RBC 5.36 10^6/uL (4.36-5.78); RDW 12.8 % (11.8-14.1); RDW-SD 38.5 fL; WBC 8.48 10^3/uL (4.4-10.8)
[2022-11-18 11:16] LABS: Potassium 4.2 mmol/L (3.5-5.1); Sodium 143 mmol/L (136-145)
[2022-11-18 12:09] LABS: ALT 38 U/L (16-63); AST 18 U/L (15-37); Albumin 3.5 g/dL (3.4-5.0); Alkaline Phosphatase 79 U/L (46-116); Anion Gap 7.2 mmol/L (3-11); BUN 16 mg/dL (7-18); Bilirubin, Total 0.4 mg/dL (0.2-1.0); CO2 27.8 mmol/L (21.0-32.0); Calcium 9.2 mg/dL (8.5-10.1); Calculated LDL 102 mg/dL (<100); Chloride 108 mmol/L (98-107); Cholesterol 155 mg/dL (<200); Estimated GFR 105.14 (mL/min/1.73m2); Glucose 103 mg/dL (74-106); HDL Cholesterol 38 mg/dL (40-60); Total Protein 7.4 g/dL (6.4-8.2); Triglyceride 79 mg/dL (<150); Vitamin B12 663 pg/mL (193-986)
[2022-11-18 12:28] LABS: Hemoglobin A1C 5.9 % (<5.7)
[2022-11-19 09:37] LABS: HBs Antibody, Quant 30.4 mIU/mL (See Note); Hepatitis B Surface Ab Positive (See Note)
[2022-11-19 09:49] LABS: Hepatitis B Surface Ag Negative (Negative)
[2022-11-19 10:32] LABS: Hep B Core Antibody Negative (Negative)
== END 2022-11-18 02:57 | disposition home or self-care (01) ==
LOC: LBO 02:56
PROVIDERS: PCP Nurse Practitioner Family; Referring Provider Nurse Practitioner Family; Visit Provider Nurse Practitioner Family
DX: K76.0 Fatty (change of) liver, not elsewhere classified (principal); R73.01 Impaired fasting glucose; E53.8 Deficiency of other specified B group vitamins; E78.5 Hyperlipidemia, unspecified
CPT/HCPCS: 36415; 80053; 80061; 86704; 86706; 87340; 82607; 83036; 85025

== ENCOUNTER 2024-09-01 01:00 | Outpatient (CLI) | payer OTHER, SELFPAY ==
[2024-09-01 07:17] LABS: HCT 44.6 % (40.0-50.0); HGB 14.5 g/dL (13.5-17.5); MCH 27.1 pg (27.0-33.0); MCHC 32.5 % (32.0-36.0); MCV 83 fL (80-95); MPV 9.3 fL (8.0-11.0); Platelet Count 284 10^3/uL (130-400); RBC 5.35 10^6/uL (4.36-5.78); RDW 12.4 % (11.8-14.1); RDW-SD 37.6 fL; WBC 8.61 10^3/uL (4.4-10.8)
[2024-09-01 07:58] LABS: ALT 42 U/L (16-63); AST 19 U/L (15-37); Albumin 3.3 g/dL (3.4-5.0); Alkaline Phosphatase 94 U/L (46-116); Anion Gap 8.2 mmol/L (3-11); BUN 18 mg/dL (7-18); Bilirubin, Total 0.42 mg/dL (0.2-1.0); CO2 28.8 mmol/L (21.0-32.0); Calcium 8.8 mg/dL (8.5-10.1); Calculated LDL 83 mg/dL (<100); Chloride 105 mmol/L (98-107); Cholesterol 159 mg/dL (<200); Estimated GFR 103.84 (mL/min/1.73m2); Glucose 102 mg/dL (74-106); HDL Cholesterol 36 mg/dL (40-60); Potassium 4.3 mmol/L (3.5-5.1); Sodium 142 mmol/L (136-145); Total Protein 7.1 g/dL (6.4-8.2); Triglyceride 203 mg/dL (<150); Vitamin B12 571 pg/mL (193-986)
== END 2024-09-01 01:01 | disposition home or self-care (01) ==
LOC: LBO 01:01
PROVIDERS: PCP Nurse Practitioner Family; Referring Provider Nurse Practitioner Family; Visit Provider Nurse Practitioner Family
DX: K76.0 Fatty (change of) liver, not elsewhere classified (principal); E53.8 Deficiency of other specified B group vitamins; Z00.00 Encounter for general adult medical examination without abnormal findings
CPT/HCPCS: 36415; 80053; 80061; 85027; 82607

== ENCOUNTER 2024-10-27 14:46 | Outpatient (REF) | payer OTHER, SELFPAY | END 2024-10-27 14:47 | disposition home or self-care (01) | LOC: LBN 14:46 | PROVIDERS: PCP Nurse Practitioner Family; Visit Provider Physician Assistant Medical | DX: J02.9 Acute pharyngitis, unspecified (principal) | CPT/HCPCS: 87070 ==